=== PATIENT | male | born 1965 | race Caucasian/White ===

== ENCOUNTER 2024-08-22 18:01 | Inpatient (IN) ==
[2024-08-22 18:54] LABS: BASOPHILS % (AUTO) 0.3 %; EOSINOPHILS % (AUTO) 0.3 %; HCT - HEMATOCRIT 20.4 % (42.0-52.0); LYMPHOCYTES # (AUTO) 0.3 10^3/uL (1.5-3.5); LYMPHOCYTES % (AUTO) 8.7 %; MEAN CORPUSCULAR HEMOGLOBIN 29.4 pg (27.0-31.0); MEAN CORPUSCULAR HGB CONC 33.3 g/dL (32.0-36.0); MEAN CORPUSCULAR VOLUME 88.3 fL (80.0-94.0); MEAN PLATELET VOLUME 11.4 fL (7.4-11.4); MONOCYTES # (AUTO) 0.5 10^3/uL (0.0-1.0); NEUTROPHILS # (AUTO) 2.6 10^3/uL (1.5-6.6); NEUTROPHILS % (AUTO) 74.5 %; NRBC ABSOLUTE COUNT (AUTO) 0.03 x10^3/uL; NUCLEATED RED BLOOD CELLS AUTO 0.9 /100WBC; PLT - PLATELET COUNT 77 10^3/uL (130-450); RED BLOOD COUNT 2.31 10^6/uL (4.70-6.10); WHITE BLOOD COUNT 3.5 x10^3/uL (4.8-10.8)
[2024-08-22 19:10] LABS: HGB - HEMOGLOBIN 6.8 g/dL (14.0-18.0)
[2024-08-22 19:13] LABS: ALBUMIN/GLOBULIN RATIO 1.2 (1.0-2.2); BILIRUBIN,TOTAL 0.9 mg/dL (0.2-1.0); CALCIUM 7.6 mg/dL (8.5-10.3); CREATININE 0.9 mg/dL (0.6-1.3); POTASSIUM 3.4 mmol/L (3.5-4.5); TOTAL PROTEIN 5.6 g/dL (6.4-8.9)
[2024-08-22] MEDS: ACETAMINOPHEN 325 MG TABLET PO STA (19:24)
[2024-08-22] MEDS: SODIUM CHLORIDE 0.9% 1,000 ML IV STA ×2 (19:25)
[2024-08-22 19:26] LABS: CORONAVIRUS 229E-RESP PCR NOT DETECTED; CORONAVIRUS HKU1-RESP PCR NOT DETECTED; CORONAVIRUS NL63-RESP PCR NOT DETECTED; CORONAVIRUS OC43-RESP PCR NOT DETECTED; HUMAN METAPNEUMOVIRUS NOT DETECTED
[2024-08-22 19:27] LABS: B. PARAPERTUSSIS- RESP PCR PAN NOT DETECTED; B. PERTUSSIS- RESP PCR PANEL NOT DETECTED; C. PNEUMONIAE- RESP PCR PANEL NOT DETECTED; INFLUENZA A- RESP PCR PANEL NOT DETECTED; INFLUENZA B - RESP PCR PANEL NOT DETECTED; M. PNEUMONIAE- RESP PCR PANEL NOT DETECTED; PARAINFLUENZA VIRUS 1 NOT DETECTED; PARAINFLUENZA VIRUS 2 NOT DETECTED; PARAINFLUENZA VIRUS 4 NOT DETECTED; RHINOVIRUS/ENTEROVIRUS NOT DETECTED; RSV- RESP PCR PANEL NOT DETECTED; SARS-CoV-2 -RESP PCR PANEL NOT DETECTED
--- NOTE | 2024-08-22 19:29 | ED Physician Documentation ---
History of Present Illness Stated complaint Stated Complaint: WEAKNESS Chief complaint Chief Complaint: General History obtained from History obtained from: Patient and Family Additonal information Additional information: 59-year-old male with a history of pancreatic cancer, sees a Dr. Key at [facility] in [place]. He has not been feeling well for the past week. He states that he is had some rhinorrhea and congestion. Feeling generally unwell. No known fevers. No vomiting or diarrhea. He was receiving chemotherapy today, apparently is in remission and is receiving adjunctive juan miguel motherapy. He was told that his hemoglobin was down to 7.1 so they wanted him to come and have a blood transfusion. His states that they could not find a hospital to admit him in [place] so they decided to come home and come to the emergency department here. Upon arrival to the emergency department noted that he had a fever, tachycardia and hypoxia. states normal systolic blood pressure is 90-100. Review of Systems Constitutional Reports: Fever and Chills Cardiovascular Denies: chest pain Respiratory Reports: Cough (Mild, dry); Denies: Wheezing Gastrointestinal Denies: Abdominal pain, Vomiting, Emeka blood emesis, Heartburn or Diarrhea Genitourinary Denies: Painful urination, Urinary frequency or Urinary urgency Musculoskeletal Denies: Back pain Integumentary/Breast Denies: Rash Neurological Denies: Headache Allergic/Immunologic Denies: Wheezing Meds/Allgy Allergies Allergies Allergy/AdvReac Type Severity Reaction Status Date / Time No Known Drug Allergies Allergy Verified 08/22/24 18:11 [facility] Medical History Medical History (Updated 08/22/24 @ 21:08 by Racquel Mccoy MD) Pancreatic cancer Diverticulitis large intestine Surgical History Surgical History (Updated 08/22/24 @ 21:02 by Racquel Mccoy MD) H/O discectomy Family History Family History (Updated 08/22/24 @ 20:59 by Racquel Mccoy MD) Father Cancer Mother Arthritis Brother Alcoholism Sister Well adult exam Social History Social History (Updated 08/22/24 @ 21:01 by Racquel Mccoy MD) Smoking Status: Former smoker If you are a former smoker, when did you quit? (Date/Year): 1997 Number of Years Smoked: 16 How many cigarettes a day do you smoke? (20 cigarettes=1 Pk): 20 Second hand tobacco smoke exposure: No Do you dip or chew tobacco?: No Do you vape?: No Living arrangement: At home Marital Status: Living Condition: With spouse/s.o. More Information: Just moved from [place] to [place] this last 2 weeks because [facility] Support Person: Yes Relationship: Spouse Living Situation Details: Spouse is DPOA. 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 Exam Constitutional no apparent distress Pale appearing HENMT TMs normal bilaterally and oropharynx normal Clear rhinorrhea Eyes PERRL Neck/C-Spine supple and no meningeal signs Lymph No cervical lymphadenopathy Chest Port in the right upper chest without signs of infection Respiratory breath sounds equal bilaterally and normal respiratory effort Cardiovascular normal heart rate noted and regular rhythm noted Gastrointestinal abdomen soft to palpation, nontender to palpation and nondistended Extremities No edema Psychiatry mental status grossly normal and oriented x3 Skin no rash Results Vitals Vitals: Vital Signs - 24 hr 08/22/24 18:09 08/22/24 19:04 08/22/24 19:24 Temperature 39.4 C H Temperature Source Oral Pulse Rate 126 H 111 H Respiratory Rate 18 19 Blood Pressure 126/77 138/81 H O2 Saturation 93 89 L O2 Source Room air Nasal cannula If not protocol: Oxygen Flow, liters/minute 2 Pain Intensity 10 5 08/22/24 19:30 08/22/24 20:00 Temperature 38.3 C H Temperature Source Oral Pulse Rate 107 H 103 H Respiratory Rate 14 16 Blood Pressure 127/77 127/77 O2 Saturation 94 96 O2 Source Nasal cannula Nasal cannula If not protocol: Oxygen Flow, liters/minute 2 Pain Intensity 4 5 Oxygen O2 Source Nasal cannula Labs Labs: Laboratory Tests 08/22/24 08/22/24 08/22/24 18:27 18:40 19:22 WBC 3.5 L RBC 2.31 L Hgb 6.8 L* Hct 20.4 L MCV 88.3 MCH 29.4 MCHC 33.3 RDW 15.0 Plt Count 77 L MPV 11.4 Neut # (Auto) 2.6 Lymph # (Auto) 0.3 L [place] # (Auto) 0.5 Eos # (Auto) 0.0 Baso # (Auto) 0.0 Absolute Nucleated RBC 0.03 Nucleated RBC % 0.9 Sodium 129 L Potassium 3.4 L Chloride 96 L Carbon Dioxide 24 Anion Gap 9.0 BUN 13 Creatinine 0.9 Estimated GFR (MDRD) 86 L Glucose 158 H Lactic Acid 0.6 Calcium 7.6 L Total Bilirubin 0.9 AST 43 H ALT 34 Alkaline Phosphatase 45 Total Protein 5.6 L Albumin 3.0 L Globulin 2.6 Albumin/Globulin Ratio 1.2 Nasal Adenovirus (PCR) NOT DETECTED Nasal B. parapertussis DNA (PCR) NOT DETECTED Nasal Coronavir 229E PCR NOT DETECTED Nasal Coronavir HKU1 PCR NOT DETECTED Nasal Coronavir NL63 PCR NOT DETECTED Nasal Coronavir OC43 PCR NOT DETECTED Nasal Enterovir/Rhinovir PCR NOT DETECTED Nasal Influenza B PCR NOT DETECTED Nasal Influenza A PCR NOT DETECTED Nasal Parainfluen 1 PCR NOT DETECTED Nasal Parainfluen 2 PCR NOT DETECTED Nasal Parainfluen 3 PCR NOT DETECTED Nasal Parainfluen 4 PCR NOT DETECTED Nasal RSV (PCR) NOT DETECTED Nasal B.pertussis DNA PCR NOT DETECTED Nasal C.pneumoniae (PCR) NOT DETECTED Josse Human Metapneumo PCR NOT DETECTED Nasal M.pneumoniae (PCR) NOT DETECTED Nasal SARS-CoV-2 (PCR) NOT DETECTED Blood Type O POSITIVE Blood Type Recheck O POSITIVE Antibody Screen NEGATIVE Crossmatch IS Only See Detail Rads (name of study) cxr: Relevant Findings:: Final report received PD Medical Decision Making ED course Complexity details: reviewed results, re-evaluated patient, considered differential, d/w patient and d/w family ED course: Patient is a 59-year-old male who presents to the emergency department with fever, tachycardia. He is reportedly undergoing adjunctive chemotherapy for pancreatic cancer which is reportedly in remission. Has a port in the right upper chest. Concern for sepsis. Given IV fluids. Chest x-ray shows multifocal pneumonia. Given Rocephin and azithromycin. He is hypoxic, 87 to 89% on room air while lying still in bed, drops further than this with any movement. Placed on 2 L nasal cannula. He is also anemic, down to 6.8 hemoglobin. Given his weakness and below trams fusion threshold, will admit for sepsis, pneumonia, hypoxia and symptomatic anemia. Discussed the case with the hospitalist who accepts This document was made in part using voice recognition software. While efforts are made to proofread this document, sound alike and grammatical errors may occur. Discharge Plan Discharge Patient Disposition: [facility] DC/Xfer Condition: Stable Clinical Impression: Hypoxia, Pneumonia, Anemia, Fever Interventions: ED Admission Assessment Last Done: 08/22/24 20:39
[2024-08-22] MEDS: cefTRIAXone 2 GM VIAL IVP STA (19:57)
[2024-08-22] MEDS: AZITHROMYCIN INJ 500 MG in SODIUM CHLORIDE 0.9% 250 ML IV STA (19:59)
--- NOTE | 2024-08-22 19:59 | XRAY Report ---
PROCEDURE: XR Chest 1V INDICATIONS: Sepsis TECHNIQUE: One view of the chest was acquired. COMPARISON: None. FINDINGS: Surgical changes and devices: Right-sided port with the catheter tip at the middle third the SVC. Lungs and pleura: No pleural effusions or pneumothorax. Bilateral patchy air space opacity. Mediastinum: Mediastinal contours appear normal. Heart size is normal. Bones and chest wall: No suspicious bony lesions. Overlying soft tissues appear unremarkable. IMPRESSION: Bilateral patchy airspace opacity. This could be due to pneumonia or pneumonitis. Pulmonary edema is also a consideration. Reviewed by: Shree Reyes MD on 08/22/2024 7:58 PM PST Approved by: Shree Reyes MD on 08/22/2024 7:58 PM PST Station ID: [id number]
--- NOTE | 2024-08-22 20:09 | HISTORY & PHYSICAL EXAMINATION ---
Chief Complaint Chief Complaint Chief Complaint: Anemia History of Present Illness Admitted From Admitted From:: Home History Obtained From Records Reviewed: [facility] briseidamilo History obtained from: Patient , And Dr. Thompson Exam Limitations: None History of Present Illness HPI Comment/Other: He is a 59-year-old white male who has a history of pancreatic cancer, unknown stage. He presented to our emergency room to get 2 units of transfused packed cells. He states that he is seen by the [facility] and gets his chemotherapy from them for pancreatic cancer. He went for his chemo treatment today but his blood count was too low so they gave him an iron infusion and then instructed him to go to the emergency room to get 2 units. They were told that his hemoglobin was 7.1. With this his hemoglobin is 6.8. He has been on smaller doses and more prolonged doses of chemotherapy with the form of gentamicin and Abraxane since April. That is to treat his pancreatic cancer. Prior to that he was getting full dose 5-FU but he could not tolerate it. His states that he is responding and that his tumor is in "remission". He has been very tired. Very fatigued but he attributes that to the chemo. Yesterday he developed fevers and chills but no cough, no shortness of breath, no change in bowel habits, no dysuria, urgency, frequency. Denies eustachian tube dysfunction. Denies sore throat. He still got up this morning to go to get chemo but they opted not to do it because of the low hemoglobin. He did get an iron infusion 3 weeks ago. No change in stool. No dark or tarry stool. He is being evaluated by the ER provider, he was noted to have a temp of 38.3. Blood pressure of 127/77. Pulse 107. Respirations 14. He was hypoxic on room air and required 2 L to bring him up to 94% by nasal cannula. His chest x-ray has bilateral patchy airspace opacities. Pulmonary edema is also consideration. His sodium was hyponatremic at 129. Potassium 3.4. BUN 13, creatinine 0.9. Glucose 158, lactic acid 0.6, calcium 7.6. AST 43. Total protein 5.6. White cell count was low at 3.5. Hemoglobin 6.8. Platelets 77. After discussion with the ER provider, I will admit the patient inpatient status because I do believe he will be here more than 2 midnights. I will transfuse him, start antibiotics. I will also contact his oncology office tomorrow to see what the regimen is. Meds/Allgy Allergies Allergies Allergy/AdvReac Type Severity Reaction Status Date / Time No Known Drug Allergies Allergy Verified 08/22/24 18:11 [facility] Medical History Medical History (Updated 08/22/24 @ 21:08 by Racquel Mccoy MD) Pancreatic cancer Diverticulitis large intestine Surgical History Surgical History (Updated 08/22/24 @ 21:02 by Racquel Mccoy MD) H/O discectomy Family History Family History (Updated 08/22/24 @ 20:59 by Racquel Mccoy MD) Father Cancer Mother Arthritis Brother Alcoholism Sister Well adult exam Social History Social History (Updated 08/22/24 @ 21:01 by Racquel Mccoy MD) Smoking Status: Former smoker If you are a former smoker, when did you quit? (Date/Year): 1997 Number of Years Smoked: 16 How many cigarettes a day do you smoke? (20 cigarettes=1 Pk): 20 Second hand tobacco smoke exposure: No Do you dip or chew tobacco?: No Do you vape?: No Living arrangement: At home Marital Status: Living Condition: With spouse/s.o. Support Person: Yes Relationship: Spouse Living Situation Details: Spouse is DPOA. 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 POLST Patient has POLST: No POLST Status: Full Code Review of Systems Constitutional Reports: Fatigue, Fever, Chills, Malaise, Weakness, Poor appetite and Weight loss Eyes Denies: Pain, Irritation, Amaurosis, Blurry vision or Floaters Ears, nose, mouth, and throat Denies: Ear pain, Ear discharge, Hearing loss, Post nasal drip, Nasal obstruction, Mouth pain, Difficulty swallowing, Swelling of lips/tongue or Neck pain Cardiovascular Reports: lightheadedness and shortness of breath with exertion; Denies: Irregular heart rate, chest pain, palpitations, edema, swelling of feet/ankles, Syncope or shortness of breath when lying down Respiratory Reports: Shortness of breath; Denies: Cough, Sputum production, Change in phlegm color, Wheezing or Apnea Gastrointestinal Denies: Abdominal pain, Abdominal distention, Nausea, Vomiting, Emeka blood emesis, Difficulty swallowing, Change in bowel habits, Rectal bleeding, Rectal swelling, Rectal itching, Melena or Blood in stool Genitourinary Denies: Painful urination, Flank pain, Incontinence or Urinary frequency Musculoskeletal Denies: Back pain or Neck pain Endocrine Reports: Fatigue Allergic/Immunologic Denies: Wheezing Prior Level of Functionality: Functional with regards to dressing, feeding. Very weak and tired. Needs his to drive him to chemo and does a lot of work for him. But alert, oriented. Making decisions. Exam Exam Exceedingly pale fatigued appearing white male who is alert and oriented to person, place, time and situation Constitutional no apparent distress HENMT normocephalic, head/scalp atraumatic and oral mucous membranes abnormal (dry) Alopecia Eyes PERRL and no scleral icterus Neck/C-Spine visual inspection normal Lymph no lymphadenopathy noted Chest inspection of chest normal and palpation of chest normal Respiratory breath sounds equal bilaterally, normal respiratory effort and clear to auscultation bilaterally Cardiovascular tachycardic thumping S1 and S2, no murmur. PMI normally placed Gastrointestinal abdomen normal to inspection, abdomen soft to palpation, nontender to palpation and nontender to percussion Genitourinary no CVA tenderness Back/Pelvis spine normal to inspection Extremities normal to inspection, normal to palpation, no tenderness and full ROM Neurology relocation services specialist II-XII intact, no movement abnormality noted, no focal motor deficit noted and no sensory deficits noted Psychiatry mental status grossly normal Skin Very pale gentleman without rashes Sepsis Event Note (H) Sepsis Criteria Sepsis Criteria: Recorded Temperature greater than 38.3C or Less than 36C, Recorded Heart Rate greater than 90 bpm and Respiratory: Increasing oxygen requirements Conclusion/Plan Problem List (1) Acute respiratory failure with hypoxia: Plan: Due to pneumonia in a patient who is immunocompromised from chemotherapy. Started on nasal cannula oxygen. states he is a full code. He endorses that. So he will be intubated if he needs to be. (2) Pneumonia: Plan: Community-acquired in the immunocompromise patient. I have started him on Rocephin and azithromycin and explained to him that is a community-acquired pneumonia protocol. He will get 5 days of Rocephin, 3 days of azithromycin. If he is doing well and fever goes away, white cell count stays normal, and he goes off oxygen I will switch him over to oral meds and he can go home. (3) Pancreatic cancer: Plan: Gentamicin and Abraxane. He is reportedly achieved full remission. I will contact his oncologist tomorrow to see what his treatment regimen is. states that he takes Reglan 4 times a day. He also takes methadone 2.5 and Phenergan 25 twice a day. She wants us to make sure he takes those medications. (4) Anemia due to chemotherapy: Plan: Transfuse 1 unit of blood. Recheck hemoglobin. If he is above 7 he probably should not get a second unit according to our protocol but again I will discuss with his oncologist. He is not getting radiation as far as I now (5) Hypokalemia: Plan: Potassium riders. Recheck in the morning. Lab Results Lab results reviewed: Yes 08/22/24 18:40 08/22/24 18:40 Core Measures Anticipated LOS I expect patient to be DC'd or transferred within 96 hours.: Yes DVT/VTE - Prophylaxis VTE/DVT Device ordered at admit?: Yes
[2024-08-22] MEDS ORDERED: ONDANSETRON ODT 4 MG TABLET TL PRN (20:52)
[2024-08-22] MEDS ORDERED: ONDANSETRON 4 MG/2 ML VIAL IVP PRN (20:52)
[2024-08-22 21:59] LABS: BILIRUBIN,URINE NEGATIVE (NEGATIVE); CLARITY,URINE CLEAR (CLEAR); GLUCOSE, URINE (UA) NEGATIVE (NEGATIVE); KETONES,URINE (UA) NEGATIVE (NEGATIVE); LEUKOCYTE ESTERASE, URINE NEGATIVE (NEGATIVE); NITRITE,URINE NEGATIVE (NEGATIVE); OCCULT BLOOD,URINE NEGATIVE (NEGATIVE); PH,URINE 5.5 PH (5.0-7.5); PROTEIN,URINE TRACE mg/dL (NEGATIVE); UROBILINOGEN,URINE 0.2 (NORMAL) E.U./dL (NORMAL)
[2024-08-22 22:16] LABS: BACTERIA,URINE None Seen /HPF (None Seen); RBC,URINE 0-5 /HPF (0-5); SQUAMOUS EPITHELIAL CELL,UR NONE SEEN (<= Few); WBC,URINE 0-3 /HPF (0-3)
[2024-08-22 22:17] LABS: AMORPHOUS SEDIMENT,UR Rare /LPF
[2024-08-22] MEDS: MIRTAZAPINE 15 MG TABLET PO SCH (22:40)
[2024-08-22] MEDS: METOCLOPRAMIDE 10 MG TABLET PO SCH (22:41)
[2024-08-23] MEDS: SODIUM CHLORIDE FLUSH 0.9% 10 ML SYRINGE IVP SCH (02:51)
[2024-08-23] MEDS: ACETAMINOPHEN 325 MG TABLET PO PRN (05:08)
[2024-08-23 05:22] LABS: BASOPHILS % (AUTO) 0.3 %; HCT - HEMATOCRIT 23.1 % (42.0-52.0); HGB - HEMOGLOBIN 7.7 g/dL (14.0-18.0); LYMPHOCYTES % (AUTO) 6.3 %; MEAN CORPUSCULAR HEMOGLOBIN 29.7 pg (27.0-31.0); MEAN CORPUSCULAR HGB CONC 33.3 g/dL (32.0-36.0); MEAN CORPUSCULAR VOLUME 89.2 fL (80.0-94.0); MEAN PLATELET VOLUME 10.2 fL (7.4-11.4); MONOCYTES % (AUTO) 9.1 %; NEUTROPHILS % (AUTO) 82.6 %; PLT - PLATELET COUNT 73 10^3/uL (130-450); RED BLOOD COUNT 2.59 10^6/uL (4.70-6.10); RED CELL DISTRIBUTION WIDTH 14.9 % (12.0-15.0); WHITE BLOOD COUNT 2.9 x10^3/uL (4.8-10.8)
--- NOTE | 2024-08-23 05:22 | PROVIDER PROGRESS NOTE ---
Professor Of Geography Note Professor Of Geography Note Professor Of Geography Note: per rn - "Pt w/ acute respiratory failure w/ hypoxia and PNX, hx of pancreative stage 1V cancer who received 1 unit of PRBs that ended at 0246. Pt feels unwell and current vitals are: 39.6*C HR 118 BP 147/81 RR 24 O2 @ 96% on 4L NC Pt was afebrile before and after transfusion, but pt did have a fever down in ED prior to receiving blood. Also has frequent panic attacks per pt and and his gave him a Xanax around 0300. These are from the blood transfusion reaction protocol: Can you please order blood cultures x2, UA, pink top EDTA. Currently we have PO Tylenol to give, do you want us to change it to IV Tylenol? Any new orders you want to put in. Please advise. Thank you." orders placed as per above recommendation, to include tylenol 1gm IV and also CXR
[2024-08-23 05:31] LABS: BILIRUBIN,URINE NEGATIVE (NEGATIVE); GLUCOSE, URINE (UA) NEGATIVE (NEGATIVE); KETONES,URINE (UA) NEGATIVE (NEGATIVE); LEUKOCYTE ESTERASE, URINE NEGATIVE (NEGATIVE); NITRITE,URINE NEGATIVE (NEGATIVE); OCCULT BLOOD,URINE NEGATIVE (NEGATIVE); PROTEIN,URINE 100 mg/dL (NEGATIVE); UROBILINOGEN,URINE 0.2 (NORMAL) E.U./dL (NORMAL)
[2024-08-23 05:33] LABS: CALCIUM 7.5 mg/dL (8.5-10.3); CREATININE 0.9 mg/dL (0.6-1.3)
[2024-08-23 05:52] LABS: BACTERIA,URINE Rare /HPF (None Seen); CLARITY,URINE CLEAR (CLEAR); RBC,URINE 0-5 /HPF (0-5); SQUAMOUS EPITHELIAL CELL,UR NONE SEEN (<= Few); WBC,URINE 0-3 /HPF (0-3)
[2024-08-23] MEDS: METHADONE 5 MG TABLET PO SCH (06:09)
[2024-08-23] MEDS: PROMETHAZINE 25 MG TABLET PO SCH (06:14)
[2024-08-23 06:40] LABS: ABNORMAL LYMPHS % (MANUAL) 0 %
[2024-08-23 06:54] LABS: BAND NEUTROPHILS % (MANUAL) 11 %; DIFFERENTIAL COMMENT MANUAL DIFFERENTIAL; LYMPHOCYTES # (MANUAL) 0.1 10^3/uL (1.5-3.5); LYMPHOCYTES % (MANUAL) 5 %; MONOCYTES # (MANUAL) 0.1 10^3/uL (0.0-1.0); NEUTROPHILS # (MANUAL) 2.7 10^3/uL (1.5-6.6); PLATELET ESTIMATE, MANUAL DECREASED (<130,000) (NORMAL); PLATELET MORPHOLOGY NORMAL APPEARANCE (NORMAL); RBC MORPHOLOGY (MULTIPLE) NORMAL APPEARANCE (NORMAL); WBC MORPHOLOGY (MULTIPLE) NORMAL APPEARANCE (NORMAL)
[2024-08-23] MEDS: ACETAMINOPHEN 1,000 MG/100 ML 1,000 MG/100 ML BAG IV ONE (07:23)
--- NOTE | 2024-08-23 09:02 | XRAY Report ---
PROCEDURE: XR Chest 1V INDICATIONS: fevers TECHNIQUE: One view of the chest was acquired. COMPARISON: 08/22/2024. FINDINGS: Surgical changes and devices: Right chest wall Port-A-Cath tip is in SVC. Lungs and pleura: There is interval significant worsening of bilateral lung aeration with extensive airspace opacities throughout bilateral lung [place]. No pleural effusion or gross pneumothorax. Mediastinum: Mediastinal contours appear normal. Heart size is normal. Bones and chest wall: No suspicious bony lesions. Overlying soft tissues appear unremarkable. IMPRESSION: Interval worsening of bilateral lung aeration with extensive bilateral pulmonary infiltrates versus p ulmonary edema. No pleural effusion or pneumothorax. Findings are concordant with preliminary interpretation provided by [facility]. Reviewed by: Tigre Thomas MD on 08/23/2024 9:01 AM PST Approved by: Tigre Thomas MD on 08/23/2024 9:01 AM PST Station ID: [id number]
[2024-08-23] MEDS: FUROSEMIDE 20 MG/2 ML VIAL IVP ONE (10:04)
--- NOTE | 2024-08-23 12:04 | PHARMACY PROGRESS NOTE ---
Best Possible Medication History Admit Date and Time: 08/22/242001 Home Medications Medication Instructions Recorded Confirmed Type alprazolam 1 mg tablet 1 mg PO BID PRN anxiety 08/23/24 08/23/24 History clonidine HCl 0.2 mg tablet 0.2 mg PO BID 08/23/24 08/23/24 History fenofibrate 160 mg tablet 160 mg PO DAILY 08/23/24 08/23/24 History wukmdd-dhxelfmr-clfofuk 2 - 4 cap PO TIDWM 08/23/24 08/23/24 History 36,000-114,000-180,000 unit capsule,delay rel (Creon) methadone 5 mg tablet 2.5 mg PO BID 08/23/24 08/23/24 History metoclopramide HCl 10 mg tablet 40 mg PO ACHS 08/23/24 08/23/24 History (Reglan) mirtazapine 7.5 mg tablet 7.5 mg PO DAILY 08/23/24 08/23/24 History Processed by: Pharmacy (Medication Reconciliation completed by Facility Manager HistologyJeremy) Medications reviewed in ED?: No Medication History completed: Yes Patient Interview: Completed Secondary Source(s): Spouse/Significant other and Insurance records [facility] Statement: As the person ultimately responsible for medication therapy, providers are able to order a medication from an existing home medication list in [facility] via the "Reconcile Routine" prior to Confirmation of that medication by client support manager. Such practice is discouraged except when the physician, in their clinical judgment, deems that a medical need exists for a medication without regard to previous use.
[2024-08-23] MEDS: [UNRECOGNIZED DRUG - OTHER] PO SCH (13:53)
[2024-08-23] MEDS: LIPASE PROTEASE AMYLASE PO SCH (13:53)
--- NOTE | 2024-08-23 15:25 | PROVIDER PROGRESS NOTE ---
Documented by User: Fuad Zacarias 08/23/24 16:36 Subjective Prog Note Date Prog Note Date: 08/23/24 Subjective Pt reports feeling: Improved Subjective: Mr Rodriguez is a 59 year old gentleman with significant hx of pancreatic cancer previously treated with chemotherapy and radiation and being seen by a naturopathic provider receiving maintenance dosing of Gentamicin and Abraxane. He presented to the ED with increased WOB, hypoxia with O2 sat in the 80's% on RA. He was admitted to the floor for chemo-induced anemia with an initial Hgb 7.1, leukopenic with a WBC 3.5 thrombocytopenia with plt 77 , hyponeutremia at 129, hypokalemia 3.4, mild hypocalcemia 7.6. Subsequently on CXR showed bilateral infiltrates vs pulmonary edema indicated CAP. CXR this AM showed worsening bilateral lung aeration w/ extensive bilateral infiltrates. Abx for CAP was initialed with Ceftriaxone 1g IV q24 for 5 days and Azithromycin 500mg PO for 3 day course. He was given 1u of PRBCs with an increase in his H/H 7.7/23.1, plt levels remain low at 2.9. This morning he appeared weak, pale, and stated was having on/off feverish and chills, stating he felt like this prior to having blood transfusion. There is c/f for potential reaction from transfusion- TACO with increased lung infiltrates, with lung sounds-crackles this AM, he was given IV lasix this morning and has had increased UO. Upon assessment this afternoon, LS improved and had decreased WOB although he continues to be on NC@4lpm/ O2 sat 93%. His skin appears to be more pink vs pale/larissa in color, stating he wanted to walk around hoping it would help him improve. He is afebrile but still c/o chills/ fever but has decreased since yesterday. He was able to work with bedside RN and ambulate using a walker, continued on O2. Current Medications Current Medications Current Medications: Current Medications Generic Name Dose Route Start Last Admin Trade Name Freq PRN Reason Stop Dose Admin Acetaminophen 650 mg 08/22/24 20:52 08/23/24 11:28 Acetaminophen 325 Mg Tablet PO 650 mg Q4HR PRN Administration Pain 1 to 4, or Fever Azithromycin 500 mg 08/23/24 21:00 Azithromycin 250 Mg Tablet PO 08/24/24 21:01 HS JAYE Heparin Sodium (Beef Lung) 300 - 500 unit 08/22/24 22:32 Heparin Flush 500 Units/5 Ml Syringe IVP PRN PRN Port Protocol (>24 hours) Heparin Sodium (Beef Lung) 30 - 50 unit 08/22/24 22:32 08/23/24 06:15 Heparin Flush 50 Units/5 Ml Syringe IVP 50 unit PRN PRN Administration Port Protocol (<24 hours) Ceftriaxone Sodium 1 gm/ 100 mls @ 200 mls/hr 08/23/24 20:00 Sodium Chloride IV 08/27/24 20:29 Q24H JAYE Methadone HCl 2.5 mg 08/23/24 06:00 08/23/24 06:09 Methadone 5 Mg Tablet PO 2.5 mg 0600,1800 JAYE Administration Metoclopramide HCl 10 mg 08/22/24 22:00 08/23/24 11:28 Metoclopramide 10 Mg Tablet PO 10 mg ACHS JAYE Administration Mirtazapine 15 mg 08/22/24 21:30 08/22/24 22:40 Mirtazapine 15 Mg Tablet PO 15 mg QPM JAYE Administration Multivitamins/Minerals 1 tab 08/24/24 08:00 Multivitamin W/Minerals Tablet PO DAILYWM JAYE Ondansetron HCl 4 mg 08/22/24 20:52 Ondansetron Odt 4 Mg Tablet TL Q6HR PRN Nausea / Vomiting Ondansetron HCl 4 mg 08/22/24 20:52 Ondansetron 4 Mg/2 Ml Vial IVP Q6HR PRN Nausea / Vomiting Oxycodone HCl 5 mg 08/22/24 20:52 Oxycodone 5 Mg Tablet PO Q4HR PRN Pain 5 to 7 Lipase-Protease- 2 - 4 each 08/23/24 12:00 08/23/24 13:53 Amylase [Creon] 36, PO 3 each 000-114,000- 180,000 TIDWM JAYE Administration Unit Capsule,De Promethazine HCl 25 mg 08/23/24 06:00 08/23/24 06:14 Promethazine 25 Mg Tablet PO 25 mg 0600,1800 JAYE Administration Sodium Chloride 10 ml 08/22/24 20:52 Sodium Chloride Flush 0.9% 10 Ml Syringe IVP PRN PRN NEEDED PER PROVIDER ORDERS Sodium Chloride 10 ml 08/23/24 01:00 08/23/24 08:48 Sodium Chloride Flush 0.9% 10 Ml Syringe IVP 10 ml 0100,0900,1700 [facility] Administration Objective Vital Signs/Intake & Output Reviewed Vital Signs: Yes Vital Signs: Vital Signs x48h Temp Pulse Resp BP Pulse Ox O2 Flow Rate 08/23/24 08:10 2 08/23/24 08:06 37.0 C 102 H 22 119/74 95 2 08/23/24 06:49 38 C H Intake & Output: Intake & Output 08/20/24 08/21/24 08/22/24 08/23/24 23:59 23:59 23:59 23:59 Intake Total 2250 / 2250 3560 / 3560 Output Total 300 / 300 2425 / 2425 Balance 1950 / 1949 1135 / 1135 Weight (kg) 96 kg Objective General Appearance: positive Alert Eyes Bilateral: positive PERRL, EOMI, Conjunctivae nml and No scleral icterus ENT: positive ENT inspection nml Neck: positive Nml inspection Respiratory: positive No respiratory distress Cardiovascular: positive Regular rate & rhythm Peripheral Pulses: 2+: Radial (R), 2+: Radial (L), 2+: Dorsalis pedis (R) and 2+: Dorsalis pedis (L) Abdomen: positive Non-tender, Nml bowel sounds and No distention Back: positive Nml inspection Skin: positive Warm and Pallor (decreased from AM assessment) Extremities: positive Non-tender and No pedal edema Neurologic/Psychiatric: positive Oriented x3, CN's nml (2-12), Motor nml and Weakness Lab Results 08/23/24 05:03 08/23/24 05:03 Other Labs: Lab Results x24hrs 08/23/24 08/23/24 08/23/24 Range/Units 05:19 05:19 05:03 WBC 2.9 L (4.8-10.8) x10^3/uL RBC 2.59 L (4.70-6.10) 10^6/uL Hgb 7.7 L (14.0-18.0) g/dL Hct 23.1 L (42.0-52.0) % MCV 89.2 (80.0-94.0) fL MCH 29.7 (27.0-31.0) pg MCHC 33.3 (32.0-36.0) g/dL RDW 14.9 (12.0-15.0) % Plt Count 73 L (130-450) 10^3/uL MPV 10.2 (7.4-11.4) fL Neut # (Auto) Not Reportable (1.5-6.6) 10^3/uL Lymph # (Auto) Not Reportable (1.5-3.5) 10^3/uL [place] # (Auto) Not Reportable (0.0-1.0) 10^3/uL Eos # (Auto) Not Reportable (0.0-0.7) 10^3/uL Baso # (Auto) Not Reportable (0.0-0.1) 10^3/uL Absolute Nucleated RBC Not Reportable x10^3/uL Total Counted 100 Band Neuts % (Manual) 11 H (0 - 10) % Abnorm Lymph % (Manual) 0 % Nucleated RBC % Not Reportable /100WBC Neutrophils # (Manual) 2.7 (1.5-6.6) 10^3/uL Lymphocytes # (Manual) 0.1 L (1.5-3.5) 10^3/uL Monocytes # (Manual) 0.1 (0.0-1.0) 10^3/uL Eosinophils # (Manual) 0.0 (0-0.7) 10^3/uL Basophils # (Manual) 0.0 (0-0.1) 10^3/uL Differential Comment MANUAL DIFFERENTIAL WBC Morphology NORMAL APPEARANCE (NORMAL) Platelet Estimate DECREASED (<130,000) (NORMAL) Platelet Morphology NORMAL APPEARANCE (NORMAL) RBC Morph Micro Appear NORMAL APPEARANCE (NORMAL) Sodium 129 L (135-145) mmol/L Potassium 4.0 (3.5-4.5) mmol/L Chloride 99 L (101-111) mmol/L Carbon Dioxide 24 (21-32) mmol/L Anion Gap 6.0 (6-13) BUN 12 (6-20) mg/dL Creatinine 0.9 (0.6-1.3) mg/dL Estimated GFR (MDRD) 86 L (>89) Glucose 205 H (74-104) mg/dL Lactic Acid (0.5-2.2) mmol/L Calcium 7.5 L (8.5-10.3) mg/dL Total Bilirubin (0.2-1.0) mg/dL AST (10-42) IU/L ALT (10-60) IU/L Alkaline Phosphatase (42-121) IU/L Total Protein (6.4-8.9) g/dL Albumin (3.2-5.5) g/dL Globulin (2.1-4.2) g/dL Albumin/Globulin Ratio (1.0-2.2) Urine Color YELLOW Urine Clarity CLEAR (CLEAR) Urine pH 6.0 (5.0-7.5) PH Ur Specific [place] >=1.030 H (1.002-1.030) Urine Protein 100 H (NEGATIVE) mg/dL Urine Glucose (UA) NEGATIVE (NEGATIVE) mg/dL Urine Ketones NEGATIVE (NEGATIVE) mg/dL Urine Occult Blood NEGATIVE (NEGATIVE) Urine Nitrite NEGATIVE (NEGATIVE) Urine Bilirubin NEGATIVE (NEGATIVE) Urine Urobilinogen 0.2 (NORMAL) (NORMAL) E.U./dL Ur Leukocyte Esterase NEGATIVE (NEGATIVE) Urine RBC 0-5 (0-5) /HPF Urine WBC 0-3 (0-3) /HPF Ur Squamous Epith Cells NONE SEEN (<= Few) Amorphous Sediment /LPF Urine Bacteria Rare (None Seen) /HPF Urine Casts 0-2 RBC Casts 3-5 Granular Casts /LPF Urine Culture Comments NOT INDICATED Nasal Adenovirus (PCR) Nasal B. parapertussis DNA (PCR) Nasal Coronavir 229E PCR Nasal Coronavir HKU1 PCR Nasal Coronavir NL63 PCR Nasal Coronavir OC43 PCR Nasal Enterovir/Rhinovir PCR Nasal Influenza B PCR Nasal Influenza A PCR Nasal Parainfluen 1 PCR Nasal Parainfluen 2 PCR Nasal Parainfluen 3 PCR Nasal Parainfluen 4 PCR Nasal RSV (PCR) Nasal B.pertussis DNA PCR Nasal C.pneumoniae (PCR) Josse Human Metapneumo PCR Nasal M.pneumoniae (PCR) Nasal SARS-CoV-2 (PCR) Blood Type Blood Type Recheck Antibody Screen Crossmatch IS Only 08/22/24 08/22/24 08/22/24 Range/Units 21:40 19:22 18:40 WBC 3.5 L (4.8-10.8) x10^3/uL RBC 2.31 L (4.70-6.10) 10^6/uL Hgb 6.8 L* (14.0-18.0) g/dL Hct 20.4 L (42.0-52.0) % MCV 88.3 (80.0-94.0) fL MCH 29.4 (27.0-31.0) pg MCHC 33.3 (32.0-36.0) g/dL RDW 15.0 (12.0-15.0) % Plt Count 77 L (130-450) 10^3/uL MPV 11.4 (7.4-11.4) fL Neut # (Auto) 2.6 (1.5-6.6) 10^3/uL Lymph # (Auto) 0.3 L (1.5-3.5) 10^3/uL [place] # (Auto) 0.5 (0.0-1.0) 10^3/uL Eos # (Auto) 0.0 (0.0-0.7) 10^3/uL Baso # (Auto) 0.0 (0.0-0.1) 10^3/uL Absolute Nucleated RBC 0.03 x10^3/uL Total Counted Band Neuts % (Manual) (0 - 10) % Abnorm Lymph % (Manual) % Nucleated RBC % 0.9 /100WBC Neutrophils # (Manual) (1.5-6.6) 10^3/uL Lymphocytes # (Manual) (1.5-3.5) 10^3/uL Monocytes # (Manual) (0.0-1.0) 10^3/uL Eosinophils # (Manual) (0-0.7) 10^3/uL Basophils # (Manual) (0-0.1) 10^3/uL Differential Comment WBC Morphology (NORMAL) Platelet Estimate (NORMAL) Platelet Morphology (NORMAL) RBC Morph Micro Appear (NORMAL) Sodium 129 L (135-145) mmol/L Potassium 3.4 L (3.5-4.5) mmol/L Chloride 96 L (101-111) mmol/L Carbon Dioxide 24 (21-32) mmol/L Anion Gap 9.0 (6-13) BUN 13 (6-20) mg/dL Creatinine 0.9 (0.6-1.3) mg/dL Estimated GFR (MDRD) 86 L (>89) Glucose 158 H (74-104) mg/dL Lactic Acid 0.6 (0.5-2.2) mmol/L Calcium 7.6 L (8.5-10.3) mg/dL Total Bilirubin 0.9 (0.2-1.0) mg/dL AST 43 H (10-42) IU/L ALT 34 (10-60) IU/L Alkaline Phosphatase 45 (42-121) IU/L Total Protein 5.6 L (6.4-8.9) g/dL Albumin 3.0 L (3.2-5.5) g/dL Globulin 2.6 (2.1-4.2) g/dL Albumin/Globulin Ratio 1.2 (1.0-2.2) Urine Color YELLOW Urine Clarity CLEAR (CLEAR) Urine pH 5.5 (5.0-7.5) PH Ur Specific [place] 1.015 (1.002-1.030) Urine Protein TRACE (NEGATIVE) mg/dL Urine Glucose (UA) NEGATIVE (NEGATIVE) mg/dL Urine Ketones NEGATIVE (NEGATIVE) mg/dL Urine Occult Blood NEGATIVE (NEGATIVE) Urine Nitrite NEGATIVE (NEGATIVE) Urine Bilirubin NEGATIVE (NEGATIVE) Urine Urobilinogen 0.2 (NORMAL) (NORMAL) E.U./dL Ur Leukocyte Esterase NEGATIVE (NEGATIVE) Urine RBC 0-5 (0-5) /HPF Urine WBC 0-3 (0-3) /HPF Ur Squamous Epith Cells NONE SEEN (<= Few) Amorphous Sediment Rare /LPF Urine Bacteria None Seen (None Seen) /HPF Urine Casts /LPF Urine Culture Comments NOT INDICATED Nasal Adenovirus (PCR) Nasal B. parapertussis DNA (PCR) Nasal Coronavir 229E PCR Nasal Coronavir HKU1 PCR Nasal Coronavir NL63 PCR Nasal Coronavir OC43 PCR Nasal Enterovir/Rhinovir PCR Nasal Influenza B PCR Nasal Influenza A PCR Nasal Parainfluen 1 PCR Nasal Parainfluen 2 PCR Nasal Parainfluen 3 PCR Nasal Parainfluen 4 PCR Nasal RSV (PCR) Nasal B.pertussis DNA PCR Nasal C.pneumoniae (PCR) Josse Human Metapneumo PCR Nasal M.pneumoniae (PCR) Nasal SARS-CoV-2 (PCR) Blood Type O POSITIVE Blood Type Recheck O POSITIVE Antibody Screen NEGATIVE Crossmatch IS Only See Detail 08/22/24 Range/Units 18:27 WBC (4.8-10.8) x10^3/uL RBC (4.70-6.10) 10^6/uL Hgb (14.0-18.0) g/dL Hct (42.0-52.0) % MCV (80.0-94.0) fL MCH (27.0-31.0) pg MCHC (32.0-36.0) g/dL RDW (12.0-15.0) % Plt Count (130-450) 10^3/uL MPV (7.4-11.4) fL Neut # (Auto) (1.5-6.6) 10^3/uL Lymph # (Auto) (1.5-3.5) 10^3/uL [place] # (Auto) (0.0-1.0) 10^3/uL Eos # (Auto) (0.0-0.7) 10^3/uL Baso # (Auto) (0.0-0.1) 10^3/uL Absolute Nucleated RBC x10^3/uL Total Counted Band Neuts % (Manual) (0 - 10) % Abnorm Lymph % (Manual) % Nucleated RBC % /100WBC Neutrophils # (Manual) (1.5-6.6) 10^3/uL Lymphocytes # (Manual) (1.5-3.5) 10^3/uL Monocytes # (Manual) (0.0-1.0) 10^3/uL Eosinophils # (Manual) (0-0.7) 10^3/uL Basophils # (Manual) (0-0.1) 10^3/uL Differential Comment WBC Morphology (NORMAL) Platelet Estimate (NORMAL) Platelet Morphology (NORMAL) RBC Morph Micro Appear (NORMAL) Sodium (135-145) mmol/L Potassium (3.5-4.5) mmol/L Chloride (101-111) mmol/L Carbon Dioxide (21-32) mmol/L Anion Gap (6-13) BUN (6-20) mg/dL Creatinine (0.6-1.3) mg/dL Estimated GFR (MDRD) (>89) Glucose (74-104) mg/dL Lactic Acid (0.5-2.2) mmol/L Calcium (8.5-10.3) mg/dL Total Bilirubin (0.2-1.0) mg/dL AST (10-42) IU/L ALT (10-60) IU/L Alkaline Phosphatase (42-121) IU/L Total Protein (6.4-8.9) g/dL Albumin (3.2-5.5) g/dL Globulin (2.1-4.2) g/dL Albumin/Globulin Ratio (1.0-2.2) Urine Color Urine Clarity (CLEAR) Urine pH (5.0-7.5) PH Ur Specific [place] (1.002-1.030) Urine Protein (NEGATIVE) mg/dL Urine Glucose (UA) (NEGATIVE) mg/dL Urine Ketones (NEGATIVE) mg/dL Urine Occult Blood (NEGATIVE) Urine Nitrite (NEGATIVE) Urine Bilirubin (NEGATIVE) Urine Urobilinogen (NORMAL) E.U./dL Ur Leukocyte Esterase (NEGATIVE) Urine RBC (0-5) /HPF Urine WBC (0-3) /HPF Ur Squamous Epith Cells (<= Few) Amorphous Sediment /LPF Urine Bacteria (None Seen) /HPF Urine Casts /LPF Urine Culture Comments Nasal Adenovirus (PCR) NOT DETECTED Nasal B. parapertussis DNA (PCR) NOT DETECTED Nasal Coronavir 229E PCR NOT DETECTED Nasal Coronavir HKU1 PCR NOT DETECTED Nasal Coronavir NL63 PCR NOT DETECTED Nasal Coronavir OC43 PCR NOT DETECTED Nasal Enterovir/Rhinovir PCR NOT DETECTED Nasal Influenza B PCR NOT DETECTED Nasal Influenza A PCR NOT DETECTED Nasal Parainfluen 1 PCR NOT DETECTED Nasal Parainfluen 2 PCR NOT DETECTED Nasal Parainfluen 3 PCR NOT DETECTED Nasal Parainfluen 4 PCR NOT DETECTED Nasal RSV (PCR) NOT DETECTED Nasal B.pertussis DNA PCR NOT DETECTED Nasal C.pneumoniae (PCR) NOT DETECTED Josse Human Metapneumo PCR NOT DETECTED Nasal M.pneumoniae (PCR) NOT DETECTED Nasal SARS-CoV-2 (PCR) NOT DETECTED Blood Type Blood Type Recheck Antibody Screen Crossmatch IS Only Sepsis Event Note (H) Sepsis Criteria Sepsis Criteria: Recorded Temperature greater than 38.3C or Less than 36C, Recorded Heart Rate greater than 90 bpm and Respiratory: Increasing oxygen requirements Assessment/Plan Problem List (1) Acute respiratory failure with hypoxia: Impression: O2 sat 92-93% on O2@ 4-5lpm NC w/ WOB on excertion. (2) Pneumonia: Impression: Morning WBC 2.9. will monitor CBC. Blood Cultures showed no growth. Day 2/5 of abx Ceftriaxone 1g IV q24, Day 2/3 Azithromycin 500mg PO q24 CXR 08/23 indicated worsening bilateral infiltrates w/ LS in AM crackles. Laxix 20mg this AM, increased UO and LS improved with decreased WOB. Still req low-flow O2. Tylonol for fever PRN Qualifiers: Laterality: unspecified laterality Lung location: unspecified part of lung Pneumonia type: due to unspecified organism Qualified Code(s): J18.9 - Pneumonia, unspecified organism (3) Anemia due to chemotherapy: Impression: AM labs WBC 2.9, increased H/H 7.7/ 23.1 after 1u PRBC, will continue serial CBCs. (4) Hypokalemia: Impression: Improved w/ AM labs Na 129, promote PO food intake and monitor serial electrolytes. (5) Pancreatic cancer: Impression: Oncologist contacted today, states cancer has been "stable" for past 2-3 months. On "maintenance dosing" of Gentamicin + Abraxane. Continue home med-Reglan for N/V, Methadone 2.5mg and Phenergan 25mg/ day for pain. Qualifiers: Pancreatic malignancy location: unspecified Qualified Code(s): C25.9 - Malignant neoplasm of pancreas, unspecified Documented by User: Demetrio Rosales MD 08/23/24 15:30 Objective Objective General Appearance: positive No acute distress; negative Anxious Respiratory: positive Rales (mild bibasilar crackles ); negative Wheezes Cardiovascular: positive No murmur and No gallop; negative Diastolic murmur Abdomen: negative Guarding, Hepatomegaly or Splenomegaly Lab Results 08/23/24 05:03 08/23/24 05:03 Diagnostic Imaging Diagnostic Imaging Results: positive Final report reviewed Assessment/Plan Problem List (1) Acute respiratory failure with hypoxia: Impression: O2 sat 92-93% on O2@ 4-5lpm NC w/ WOB on exertion. Likely due to pneumonia as outlined below. (2) Pneumonia: Qualifiers: Laterality: unspecified laterality Lung location: unspecified part of lung Pneumonia type: due to unspecified organism Qualified Code(s): J18.9 - Pneumonia, unspecified organism (3) Anemia due to chemotherapy: Impression: AM labs WBC 2.9, increased H/H 7.7/ 23.1 after 1u PRBC, will continue serial CBCs. No active bleeding noted. (4) Hypokalemia: (5) Pancreatic cancer: Impression: Oncologist contacted today, Dr. Misbah Key in [place], [place], states cancer has been "stable" for past 2-3 months. On "maintenance dosing" of Gentamicin + Abraxane. Continue home med-Reglan for N/V, Methadone 2.5mg and Phenergan 25mg/ day for pain. Continue home Creon dosing as well. Qualifiers: Pancreatic malignancy location: unspecified Qualified Code(s): C25.9 - Malignant neoplasm of pancreas, unspecified
[2024-08-23] MEDS: ALPRAZolam 0.25 MG TABLET PO PRN (17:41)
[2024-08-23] MEDS: AZITHROMYCIN 250 MG TABLET PO SCH (20:39)
[2024-08-23] MEDS: cefTRIAXone 1 GM in SODIUM CHLORIDE 0.9% MINIBAG 100 ML IV SCH (20:40)
[2024-08-23] MEDS: cloNIDine 0.1 MG TABLET PO SCH (20:40)
[2024-08-23] MEDS ORDERED: AZITHROMYCIN INJ 500 MG in SODIUM CHLORIDE 0.9% 250 ML IV SCH (21:00)
[2024-08-23 21:38] LABS: ESTIMATED AVERAGE GLUCOSE 123 mg/dL (70-100); HEMOGLOBIN A1c% 5.9 % (4.27-6.07)
[2024-08-24 06:08] LABS: BASOPHILS % (AUTO) 0.4 %; EOSINOPHILS % (AUTO) 0.7 %; HCT - HEMATOCRIT 20.4 % (42.0-52.0); LYMPHOCYTES % (AUTO) 11.3 %; MEAN CORPUSCULAR HEMOGLOBIN 29.4 pg (27.0-31.0); MEAN CORPUSCULAR HGB CONC 33.8 g/dL (32.0-36.0); MEAN CORPUSCULAR VOLUME 86.8 fL (80.0-94.0); MEAN PLATELET VOLUME 11.7 fL (7.4-11.4); NEUTROPHILS % (AUTO) 81.9 %; PLT - PLATELET COUNT 101 10^3/uL (130-450); RED BLOOD COUNT 2.35 10^6/uL (4.70-6.10); RED CELL DISTRIBUTION WIDTH 14.7 % (12.0-15.0); WHITE BLOOD COUNT 2.8 x10^3/uL (4.8-10.8)
[2024-08-24 06:18] LABS: HGB - HEMOGLOBIN 6.9 g/dL (14.0-18.0)
[2024-08-24 06:19] LABS: ABNORMAL LYMPHS % (MANUAL) 0 %
[2024-08-24 06:36] LABS: BAND NEUTROPHILS % (MANUAL) 13 %; BASOPHILS % (MANUAL) 1 %; LYMPHOCYTES # (MANUAL) 0.1 10^3/uL (1.5-3.5); LYMPHOCYTES % (MANUAL) 5 %; MONOCYTES # (MANUAL) 0.1 10^3/uL (0.0-1.0); NEUTROPHILS # (MANUAL) 2.5 10^3/uL (1.5-6.6)
[2024-08-24 06:37] LABS: DIFFERENTIAL COMMENT MANUAL DIFFERENTIAL; PLATELET ESTIMATE, MANUAL DECREASED (<130,000) (NORMAL); PLATELET MORPHOLOGY NORMAL APPEARANCE (NORMAL); RBC MORPHOLOGY (MULTIPLE) NORMAL APPEARANCE (NORMAL); WBC MORPHOLOGY (MULTIPLE) NORMAL APPEARANCE (NORMAL)
[2024-08-24 07:01] LABS: CALCIUM 7.4 mg/dL (8.5-10.3); CREATININE 0.9 mg/dL (0.6-1.3); POTASSIUM 3.3 mmol/L (3.5-4.5)
[2024-08-24] MEDS: MULTIVITAMIN W/MINERALS TABLET PO SCH (08:03)
[2024-08-24] MEDS: MIRTAZAPINE 15 MG TABLET PO SCH (08:03)
--- NOTE | 2024-08-24 09:06 | XRAY Report ---
PROCEDURE: XR Chest 1V INDICATIONS: [place] TECHNIQUE: One view of the chest was acquired. COMPARISON: 08/23/2024 and 08/22/2024. FINDINGS: Surgical changes and devices: Right chest wall Port-A-Cath tip is in SVC. Lungs and pleura: No pleural effusions or pneumothorax. Persistent extensive airspace opacity throug hout bilateral lung [place] are seen not significantly changed from previous day. Mediastinum: Mediastinal contours appear normal. Heart size is normal. Bones and chest wall: No suspicious bony lesions. Overlying soft tissues appear unremarkable. IMPRESSION: Persistent extensive bilateral pulmonary airspace opacities. No pleural effusion or pneumothorax. Reviewed by: Tigre Thomas MD on 08/24/2024 9:05 AM PST Approved by: Tigre Thomas MD on 08/24/2024 9:05 AM PST Station ID: [id number]
[2024-08-24] MEDS: ACETAMINOPHEN 325 MG TABLET PO ONE (09:31)
[2024-08-24] MEDS: methylPREDNISolone SUCCINATE 40 MG/ML VIAL IVP SCH (09:32)
[2024-08-24] MEDS: FUROSEMIDE 20 MG/2 ML VIAL IVP ONE (09:32)
--- NOTE | 2024-08-24 10:26 | PROVIDER PROGRESS NOTE ---
Documented by User: Fuad Zacarias 08/24/24 13:48 Subjective Prog Note Date Prog Note Date: 08/24/24 Subjective Pt reports feeling: No change Subjective: Mr Rodriguez, a 59-year old gentleman admitted for acute respiratory failure w/ hypoxia and cancer treatment induced anemia. Morning labs showed continued leukopenia WBC 2.8, Hgb 6.9, Hct 20.4, plt 101. A second unit of PRBCs was ordered and administered and pretreated with APAP for febrile nonhemolytic transfusion reaction w/ no other s/s's. He developed increased WOB with O2 sat 88% and placed on oxymask @ 14lpm. CXR this am displaying bilateral pulmonary infiltrates, lung sounds crackles, c/f diffuse interstitial pneumonitis. His O2 sat and WOB recovered and was transitioned back to NC @ 4lpm. Abx day 09/14 Ceftriaxone and day 09/12 of Azithromycin, blood cultures show NGTD. Continued IV Lasix 20mg and started IV Solu-medrol 40mg. He was able to walk around the unit yesterday with assistance from bedside RN/walker and stated he was exhausted afterwards and fell asleep. Recommend continued ambulation and PT/ OT work with pt. He denied nausea, continued scheduled antiemetics and was able to eat breakfast without difficulty. Continue to scheduled Methadone 2.5mg and phenergan 25mg for pain/nausea, anxiousness. We spoke about potential disease progression due to his immunosuppression from cancer treatment and about the increased O2 need and intubation, him and his expressed intubation to be held off as long as possible if medications and other forms of NIPPV-BiPAP are not working. Current Medications Current Medications Current Medications: Current Medications Generic Name Dose Route Start Last Admin Trade Name Freq PRN Reason Stop Dose Admin Acetaminophen 650 mg 08/22/24 20:52 08/24/24 04:56 Acetaminophen 325 Mg Tablet PO 650 mg Q4HR PRN Administration Pain 1 to 4, or Fever Alprazolam 1 mg 08/23/24 17:30 08/24/24 04:53 Alprazolam 0.25 Mg Tablet PO 1 mg BID PRN Administration anxiety Azithromycin 500 mg 08/23/24 21:00 08/23/24 20:39 Azithromycin 250 Mg Tablet PO 08/24/24 21:01 500 mg HS JAYE Administration Clonidine HCl 0.2 mg 08/23/24 21:00 08/24/24 08:03 Clonidine 0.1 Mg Tablet PO 0.2 mg BID JAYE Administration Heparin Sodium (Beef Lung) 300 - 500 unit 08/22/24 22:32 Heparin Flush 500 Units/5 Ml Syringe IVP PRN PRN Port Protocol (>24 hours) Heparin Sodium (Beef Lung) 30 - 50 unit 08/22/24 22:32 08/23/24 06:15 Heparin Flush 50 Units/5 Ml Syringe IVP 50 unit PRN PRN Administration Port Protocol (<24 hours) Ceftriaxone Sodium 1 gm/ 100 mls @ 200 mls/hr 08/23/24 20:00 08/23/24 21:10 Sodium Chloride IV 08/27/24 20:29 Infused Q24H JAYE Infusion Methadone HCl 2.5 mg 08/23/24 06:00 08/24/24 05:29 Methadone 5 Mg Tablet PO 2.5 mg 0600,1800 JAYE Administration Methylprednisolone 40 mg 08/24/24 08:00 08/24/24 09:32 Methylprednisolone Succinate 40 Mg/Ml Vial IVP 40 mg TID JAYE Administration Metoclopramide HCl 10 mg 08/22/24 22:00 08/24/24 06:17 Metoclopramide 10 Mg Tablet PO 10 mg ACHS JAYE Administration Mirtazapine 7.5 mg 08/24/24 09:00 08/24/24 08:03 Mirtazapine 15 Mg Tablet PO 7.5 mg DAILY JAYE Administration Multivitamins/Minerals 1 tab 08/24/24 08:00 08/24/24 08:03 Multivitamin W/Minerals Tablet PO 1 tab DAILYWM JAYE Administration Ondansetron HCl 4 mg 08/22/24 20:52 Ondansetron Odt 4 Mg Tablet TL Q6HR PRN Nausea / Vomiting Ondansetron HCl 4 mg 08/22/24 20:52 Ondansetron 4 Mg/2 Ml Vial IVP Q6HR PRN Nausea / Vomiting Oxycodone HCl 5 mg 08/22/24 20:52 Oxycodone 5 Mg Tablet PO Q4HR PRN Pain 5 to 7 Lipase-Protease- 2 - 4 each 08/23/24 12:00 08/24/24 08:03 Amylase [Creon] 36, PO 2 each 000-114,000- 180,000 TIDWM JAYE Administration Unit Capsule,De Promethazine HCl 25 mg 08/23/24 06:00 08/24/24 06:18 Promethazine 25 Mg Tablet PO 25 mg 0600,1800 JAYE Administration Sodium Chloride 10 ml 08/22/24 20:52 Sodium Chloride Flush 0.9% 10 Ml Syringe IVP PRN PRN NEEDED PER PROVIDER ORDERS Sodium Chloride 10 ml 08/23/24 01:00 08/24/24 09:32 Sodium Chloride Flush 0.9% 10 Ml Syringe IVP 10 ml 0100,0900,1700 JAYE Administration Objective Vital Signs/Intake & Output Vital Signs: Vital Signs x48h Temp Pulse Pulse Pulse Resp BP Pulse Ox 08/24/24 09:42 36.6 C 100 16 138/76 H 96 08/24/24 08:23 36.3 C L 92 20 111/60 94 08/24/24 05:05 22 92 08/24/24 04:44 106 H 08/24/24 04:32 37.5 C 117 H 20 112/68 88 L O2 Flow Rate 08/24/24 09:42 13 08/24/24 08:23 4 08/24/24 05:05 14 08/24/24 04:44 08/24/24 04:32 5 Intake & Output: Intake & Output 08/21/24 08/22/24 08/23/24 08/24/24 23:59 23:59 23:59 23:59 Intake Total 2250 / 2250 3960 / 3960 720 / 720 Output Total 300 / 300 3745 / 3745 300 / 300 Balance 1950 / 1950 215 / 215 420 / 420 Weight (kg) 96 kg Lab Results 08/24/24 05:29 08/24/24 05:29 Other Labs: Lab Results x24hrs 08/24/24 08/23/24 08/22/24 Range/Units 05:29 05:03 19:22 WBC 2.8 L (4.8-10.8) x10^3/uL RBC 2.35 L (4.70-6.10) 10^6/uL Hgb 6.9 L* (14.0-18.0) g/dL Hct 20.4 L (42.0-52.0) % MCV 86.8 (80.0-94.0) fL MCH 29.4 (27.0-31.0) pg MCHC 33.8 (32.0-36.0) g/dL RDW 14.7 (12.0-15.0) % Plt Count 101 L (130-450) 10^3/uL MPV 11.7 H (7.4-11.4) fL Neut # (Auto) Not Reportable Lymph # (Auto) Not Reportable Ramsey # (Auto) Not Reportable Eos # (Auto) Not Reportable Baso # (Auto) Not Reportable Absolute Nucleated RBC Not Reportable Total Counted 100 Band Neuts % (Manual) 13 H (0 - 10) % Abnorm Lymph % (Manual) 0 % Nucleated RBC % Not Reportable Neutrophils # (Manual) 2.5 (1.5-6.6) 10^3/uL Lymphocytes # (Manual) 0.1 L (1.5-3.5) 10^3/uL Monocytes # (Manual) 0.1 (0.0-1.0) 10^3/uL Eosinophils # (Manual) 0.0 (0-0.7) 10^3/uL Basophils # (Manual) 0.0 (0-0.1) 10^3/uL Differential Comment MANUAL DIFFERENTIAL WBC Morphology NORMAL APPEARANCE (NORMAL) Platelet Estimate DECREASED (<130,000) (NORMAL) Platelet Morphology NORMAL APPEARANCE (NORMAL) RBC Morph Micro Appear NORMAL APPEARANCE (NORMAL) Sodium 128 L (135-145) mmol/L Potassium 3.3 L (3.5-4.5) mmol/L Chloride 96 L (101-111) mmol/L Carbon Dioxide 24 (21-32) mmol/L Anion Gap 8.0 (6-13) BUN 9 (6-20) mg/dL Creatinine 0.9 (0.6-1.3) mg/dL Estimated GFR (MDRD) 86 L (>89) Glucose 153 H (74-104) mg/dL Estimat Average Glucose 123 H (70-100) mg/dL Hemoglobin A1c % 5.9 (4.27-6.07) % Calcium 7.4 L (8.5-10.3) mg/dL Blood Type O POSITIVE Antibody Screen NEGATIVE Crossmatch IS Only See Detail Sepsis Event Note (H) Sepsis Criteria Sepsis Criteria: Recorded Temperature greater than 38.3C or Less than 36C, Recorded Heart Rate greater than 90 bpm and Respiratory: Increasing oxygen requirements Assessment/Plan Problem List (1) Acute respiratory failure with hypoxia: Impression: Requiring O2 via Oxymask @14-15lpm for 88% sat and incrased WOB. (2) Pneumonia: Impression: No significant changes from previous CXRs this AM. persistent extensive bilat pulm airspace opacities. c/f interstitial pneumonitis. Day 3/ Ceftriaxone 1g IV q24; day 3/ Azithromycin 500mg PO q24. Blood cultures NGTD Lasix 20mg continued. Add 40mg Solu-medrol IV for fluid offload. Qualifiers: Laterality: unspecified laterality Lung location: unspecified part of lung Pneumonia type: due to unspecified organism Qualified Code(s): J18.9 - Pneumonia, unspecified organism (3) Anemia due to chemotherapy: Impression: AM labs WBC 2.8, Hgb 6.9/ Hct 20.4 - second unit of PRBCs this AM. serial CBCs. Pre-treated w/ APAP c/f febrile nonhemolytic transfusion reaction w/ no other s/s's. - blood smear showed no hemolysis. (4) Hypokalemia: Impression: AM Potassium 3.3, replacement per protocol. Documented by User: Demetrio Rosales MD 08/24/24 13:56 Subjective Subjective Subjective: Mr Rodriguez, a 59-year old gentleman admitted for acute respiratory failure w/ hypoxia and cancer treatment induced anemia. Morning labs showed continued leukopenia WBC 2.8, Hgb 6.9, Hct 20.4, plt 101. A second unit of PRBCs was ordered and administered and pretreated with APAP for febrile nonhemolytic transfusion reaction w/ no other s/s's. He developed increased WOB with O2 sat 88% and placed on oxymask @ 14lpm. CXR this am displaying bilateral pulmonary infiltrates, lung sounds crackles, c/f diffuse interstitial pneumonitis. His O2 sat and WOB recovered and was transitioned back to NC @ 4lpm. Abx day 3/5 Ceftriaxone and day 3/3 of Azithromycin, blood cultures show NGTD. Continued IV Lasix 20mg and started IV Solu-medral 40mg. He was able to walk around the unit yesterday with assistance from bedside RN/walker and stated he was exhausted afterwards and fell asleep. Recommend continued ambulation and PT/ OT work with pt. He denied nausea, continued scheduled antiemetics and was able to eat breakfast without difficulty. Continue to scheduled Methadone 2.5mg and phenergan 25mg for pain/nausea, anxiousness. We spoke about potential disease progression due to his immunosuppression from cancer treatment and about the increased O2 need and intubation, him and his expressed intubation to be held off as long as possible if medications and other forms of NIPPV-BiPAP are not working. Objective Vital Signs/Intake & Output Reviewed Vital Signs: Yes Objective General Appearance: positive No acute distress and Alert; negative Anxious Eyes Bilateral: positive PERRL, EOMI, Conjunctivae nml and No scleral icterus ENT: positive ENT inspection nml Neck: positive Nml inspection Respiratory: positive No respiratory distress and Rales (mild fine crackles noted, more pronounced at bases); negative Wheezes Cardiovascular: positive Regular rate & rhythm, No murmur and No gallop; negative Diastolic murmur Peripheral Pulses: 2+: Radial (R), 2+: Radial (L), 2+: Dorsalis pedis (R) and 2+: Dorsalis pedis (L) Abdomen: positive Non-tender, Nml bowel sounds and No distention; negative Guarding, Hepatomegaly or Splenomegaly Back: positive Nml inspection Skin: positive Warm and Pallor (decreased from AM assessment) Extremities: positive Non-tender and No pedal edema Neurologic/Psychiatric: positive Oriented x3, CN's nml (2-12), Motor nml and Weakness Lab Results 08/24/24 05:29 08/24/24 05:29 Diagnostic Imaging Diagnostic Imaging Results: positive Final report reviewed Assessment/Plan Problem List (1) Acute respiratory failure with hypoxia: Impression: Overnight, patient had an episode of desaturation resulting in increaed oxygen requirements. Requiring O2 via Oxymask @14-15lpm for 88% saturation. Continue to wean down as tolerated. Now on 8L. Chest x-ray shows bilateral pulmonary airspace opacitites, concern for pneumonitis (could be gemcitabine induced, appropriate timeline noted), fluid overload, vs. bacterial pneumonia. Stable or slight improvement since yesterday. Will continue to get daily chest x-rays. Consider CT if no improvement noted. ECHO ordered, pending. (2) Pneumonia: Impression: Day 3/5 Ceftriaxone 1g IV q24; day 3/3 Azithromycin 500mg PO q24. Blood cultures NGTD. Leukopenia stable. Lasix 20mg continued to continue euovolemic status with increased fluids administered with blood transfusions. Initiated 40mg Solu-medrol IV TID for concern for gemcitabine induced pneumonitis. Will wean as tolerated/with improvement. Qualifiers: Laterality: unspecified laterality Lung location: unspecified part of lung Pneumonia type: due to unspecified organism Qualified Code(s): J18.9 - Pneumonia, unspecified organism (3) Anemia due to chemotherapy: Impression: Patient has pancytopenia, likely as a result of chemotherapy side effects. AM labs WBC 2.8, Hgb 6.9/ Hct 20.4 - second unit of PRBCs this AM. serial CBCs. No active signs of bleeding noted. Pre-treated w/ APAP c/f febrile nonhemolytic transfusion reaction w/ no other s/s's. blood smear showed no hemolysis. Pathologist reviewed reaction with pretreatment reccomendations. (4) Hypokalemia: Impression: AM Potassium 3.3, repleted. Continue to trend daily.
[2024-08-24] MEDS: POTASSIUM CHLORIDE 20 MEQ TABLET PO ONE (10:56)
[2024-08-24] MEDS: SODIUM CHLORIDE FLUSH 0.9% 10 ML SYRINGE IVP PRN (20:59)
[2024-08-25 06:36] LABS: HCT - HEMATOCRIT 22.6 % (42.0-52.0); HGB - HEMOGLOBIN 7.6 g/dL (14.0-18.0); LYMPHOCYTES # (AUTO) 0.3 10^3/uL (1.5-3.5); LYMPHOCYTES % (AUTO) 7.3 %; MEAN CORPUSCULAR HEMOGLOBIN 29.7 pg (27.0-31.0); MEAN CORPUSCULAR HGB CONC 33.6 g/dL (32.0-36.0); MEAN CORPUSCULAR VOLUME 88.3 fL (80.0-94.0); MEAN PLATELET VOLUME 11.1 fL (7.4-11.4); MONOCYTES # (AUTO) 0.2 10^3/uL (0.0-1.0); MONOCYTES % (AUTO) 5.7 %; NEUTROPHILS # (AUTO) 3.3 10^3/uL (1.5-6.6); NEUTROPHILS % (AUTO) 86.5 %; PLT - PLATELET COUNT 154 10^3/uL (130-450); RED BLOOD COUNT 2.56 10^6/uL (4.70-6.10); RED CELL DISTRIBUTION WIDTH 14.4 % (12.0-15.0); WHITE BLOOD COUNT 3.9 x10^3/uL (4.8-10.8)
[2024-08-25 06:52] LABS: CALCIUM 8.7 mg/dL (8.5-10.3); CREATININE 0.8 mg/dL (0.6-1.3)
--- NOTE | 2024-08-25 08:21 | XRAY Report ---
PROCEDURE: XR Chest 1V INDICATIONS: RICARDO TECHNIQUE: One view of the chest was acquired. COMPARISON: 08/24/2024 FINDINGS: Surgical changes and devices: Right chest wall Port-A-Cath in stable position.. Lungs and pleura: Extensive bilateral airspace opacities appear more dense than prior. Mediastinum: Mediastinal contours appear normal. Heart size is normal. Bones and chest wall: No suspicious bony lesions. Overlying soft tissues appear unremarkable. IMPRESSION: Extensive bilateral airspace opacities appear more dense than prior. Reviewed by: Denny Wesley MD on 08/25/2024 8:20 AM PST Approved by: Denny Wesley MD on 08/25/2024 8:20 AM PST Station ID: [id number]
[2024-08-25] MEDS ORDERED: iohexoL-300 100 ML VIAL ONE (08:41)
[2024-08-25] MEDS: FUROSEMIDE 20 MG/2 ML VIAL IVP SCH (09:00)
[2024-08-25] MEDS: CEFEPIME 2 GM VIAL IVP SCH (14:09)
--- NOTE | 2024-08-25 14:26 | PROVIDER PROGRESS NOTE ---
Subjective Subjective Subjective: Patient is a 59-year-old male with a history of stage IV pancreatic cancer on maintenance chemotherapy who presented for dyspnea, fevers, chills. Being treated as community-acquired pneumonia. Concern for gemcitabine induced pneumonitis as patient has diffuse interstitial edema. Chest x-ray appears the same or worse since admission. Chest CT ordered. Initially had spoken with the patient, and he was okay with transfer anywhere. We talked about need for transfer due to possible BAL or concern for deterioration with worsening pulmonary status. [facility] was called, they do have a bed available for him. However, stated that she does not want to go there anymore. Will call more hospitals including [facility]. Current Medications Current Medications Current Medications: Current Medications Generic Name Dose Route Start Last Admin Trade Name Freq PRN Reason Stop Dose Admin Acetaminophen 650 mg 08/22/24 20:52 08/25/24 14:09 Acetaminophen 325 Mg Tablet PO 650 mg Q4HR PRN Administration Pain 1 to 4, or Fever Alprazolam 1 mg 08/23/24 17:30 08/25/24 05:15 Alprazolam 0.25 Mg Tablet PO 1 mg BID PRN Administration anxiety Cefepime HCl 2 gm 08/25/24 14:00 08/25/24 14:09 Cefepime 2 Gm Vial IVP 2 gm Q8HR JAYE Administration Furosemide 20 mg 08/25/24 09:00 08/25/24 09:00 Furosemide 20 Mg/2 Ml Vial IVP 20 mg DAILY JAYE Administration Heparin Sodium (Beef Lung) 300 - 500 unit 08/22/24 22:32 Heparin Flush 500 Units/5 Ml Syringe IVP PRN PRN Port Protocol (>24 hours) Heparin Sodium (Beef Lung) 30 - 50 unit 08/22/24 22:32 08/24/24 20:59 Heparin Flush 50 Units/5 Ml Syringe IVP 50 unit PRN PRN Administration Port Protocol (<24 hours) Methadone HCl 2.5 mg 08/23/24 06:00 08/25/24 05:14 Methadone 5 Mg Tablet PO 2.5 mg 0600,1800 JAYE Administration Methylprednisolone 40 mg 08/24/24 08:00 08/25/24 14:09 Methylprednisolone Succinate 40 Mg/Ml Vial IVP 40 mg TID JAYE Administration Metoclopramide HCl 10 mg 08/22/24 22:00 08/25/24 11:20 Metoclopramide 10 Mg Tablet PO 10 mg ACHS JAYE Administration Mirtazapine 7.5 mg 08/24/24 09:00 08/25/24 07:54 Mirtazapine 15 Mg Tablet PO 7.5 mg DAILY JAYE Administration Multivitamins/Minerals 1 tab 08/24/24 08:00 08/25/24 07:54 Multivitamin W/Minerals Tablet PO 1 tab DAILYWM JAYE Administration Ondansetron HCl 4 mg 08/22/24 20:52 Ondansetron Odt 4 Mg Tablet TL Q6HR PRN Nausea / Vomiting Ondansetron HCl 4 mg 08/22/24 20:52 Ondansetron 4 Mg/2 Ml Vial IVP Q6HR PRN Nausea / Vomiting Oxycodone HCl 5 mg 08/22/24 20:52 Oxycodone 5 Mg Tablet PO Q4HR PRN Pain 5 to 7 Lipase-Protease- 2 - 4 each 08/23/24 12:00 08/25/24 11:46 Amylase [Creon] 36, PO 3 each 000-114,000- 180,000 TIDWM JAYE Administration Unit Capsule,De Promethazine HCl 25 mg 08/23/24 06:00 08/25/24 05:15 Promethazine 25 Mg Tablet PO 25 mg 0600,1800 JAYE Administration Sodium Chloride 10 ml 08/22/24 20:52 08/24/24 20:59 Sodium Chloride Flush 0.9% 10 Ml Syringe IVP 10 ml PRN PRN Administration NEEDED PER PROVIDER ORDERS Sodium Chloride 10 ml 08/23/24 01:00 08/25/24 09:00 Sodium Chloride Flush 0.9% 10 Ml Syringe IVP 10 ml 0100,0900,1700 JAYE Administration Objective Vital Signs/Intake & Output Reviewed Vital Signs: Yes Vital Signs: Vital Signs x48h Temp Pulse Resp BP Pulse Ox O2 Flow Rate 08/25/24 08:53 6 08/25/24 08:29 97.5 F L 95 20 116/76 92 6 Intake & Output: Intake & Output 08/22/24 08/23/24 08/24/24 08/25/24 23:59 23:59 23:59 23:59 Intake Total 2250 / 2250 3960 / 3960 1510 / 1510 720 / 720 Output Total 300 / 300 3745 / 3745 1400 / 1400 800 / 800 Balance 1950 / 1950 215 / 215 110 / 110 -80 / -80 Weight (kg) 96 kg Objective General Appearance: positive No acute distress and Alert; negative Anxious Eyes Bilateral: positive PERRL, EOMI, Conjunctivae nml and No scleral icterus ENT: positive ENT inspection nml Neck: positive Nml inspection Respiratory: positive No respiratory distress and Rales (mild fine crackles noted, more pronounced at bases); negative Wheezes Cardiovascular: positive Regular rate & rhythm, No murmur and No gallop; negative Diastolic murmur Peripheral Pulses: 2+: Radial (R), 2+: Radial (L), 2+: Dorsalis pedis (R) and 2+: Dorsalis pedis (L) Abdomen: positive Non-tender, Nml bowel sounds and No distention; negative Guarding, Hepatomegaly or Splenomegaly Back: positive Nml inspection Skin: positive Warm and Pallor (decreased from AM assessment) Extremities: positive Non-tender and No pedal edema Neurologic/Psychiatric: positive Oriented x3, CN's nml (2-12), Motor nml and Weakness Lab Results 08/25/24 06:15 08/25/24 06:15 Other Labs: Lab Results x24hrs 08/25/24 08/25/24 08/22/24 Range/Units 09:00 06:15 19:22 WBC 3.9 L (4.8-10.8) x10^3/uL RBC 2.56 L (4.70-6.10) 10^6/uL Hgb 7.6 L (14.0-18.0) g/dL Hct 22.6 L (42.0-52.0) % MCV 88.3 (80.0-94.0) fL MCH 29.7 (27.0-31.0) pg MCHC 33.6 (32.0-36.0) g/dL RDW 14.4 (12.0-15.0) % Plt Count 154 (130-450) 10^3/uL MPV 11.1 (7.4-11.4) fL Neut # (Auto) 3.3 (1.5-6.6) 10^3/uL Lymph # (Auto) 0.3 L (1.5-3.5) 10^3/uL Trigg # (Auto) 0.2 (0.0-1.0) 10^3/uL Eos # (Auto) 0.0 (0.0-0.7) 10^3/uL Baso # (Auto) 0.0 (0.0-0.1) 10^3/uL Absolute Nucleated RBC 0.00 x10^3/uL Nucleated RBC % 0.0 /100WBC Sodium 131 L (135-145) mmol/L Potassium 4.0 (3.5-4.5) mmol/L Chloride 97 L (101-111) mmol/L Carbon Dioxide 27 (21-32) mmol/L Anion Gap 7.0 (6-13) BUN 22 H (6-20) mg/dL Creatinine 0.8 (0.6-1.3) mg/dL Estimated GFR (MDRD) 99 (>89) Glucose 285 H (74-104) mg/dL Calcium 8.7 (8.5-10.3) mg/dL Nasal Screen MRSA (PCR) NEGATIVE (NEGATIVE) Crossmatch IS Only See Detail Diagnostic Imaging Diagnostic Imaging Results: positive Final report reviewed Sepsis Event Note (H) Sepsis Criteria Sepsis Criteria: Recorded Temperature greater than 38.3C or Less than 36C, Recorded Heart Rate greater than 90 bpm and Respiratory: Increasing oxygen requirements Assessment/Plan Problem List (1) Acute respiratory failure with hypoxia: Impression: Treatment escalated to include cefepime today to cover for possible Pseudomonas. Azithromycin completed. MRSA swab negative, will hold off on vancomycin at this time. Concern for gemcitabine induced pneumonitis. Started on IV Solu-Medrol 40 mg 3 times a day. Continue chest x-rays. CT ordered, pending. Echo reviewed, shows normal systolic function and diastolic function. (2) Pneumonia: Impression: Escalated to cefepime. Lasix 20mg continued to continue euovolemic status with increased fluids administered with blood transfusions. Continue 40mg Solu-medrol IV TID for concern for gemcitabine induced pneumonitis. Will wean as tolerated/with improvement. Qualifiers: Laterality: unspecified laterality Lung location: unspecified part of lung Pneumonia type: due to unspecified organism Qualified Code(s): J18.9 - Pneumonia, unspecified organism (3) Anemia due to chemotherapy: Impression: Patient has pancytopenia, likely as a result of chemotherapy side effects. Transfuse for Hb<7. No active signs of bleeding noted. Pre-treated w/ APAP c/f febrile nonhemolytic transfusion reaction w/ no other s/s's. blood smear showed no hemolysis. Pathologist reviewed reaction with pretreatment recommendations. (4) Hypokalemia: Impression: Repleted. Continue to trend daily. (5) Pancreatic cancer: Impression: Oncologist contacted today, Dr. Misbah Key in [place], [place], states cancer has been "stable" for past 2-3 months. On "maintenance dosing" of Gemcitabine + Abraxane. Continue home med-Reglan for N/V, Methadone 2.5mg and Phenergan 25mg/ day for pain. Continue home Creon dosing as well. Qualifiers: Pancreatic malignancy location: unspecified Qualified Code(s): C25.9 - Malignant neoplasm of pancreas, unspecified
--- NOTE | 2024-08-25 16:42 | CT Report ---
PROCEDURE: CT Angio Chest INDICATIONS: assess multifocal pneumonia, ?empyema, ?pe CONTRAST: 80 ML OMNI TECHNIQUE: After the administration of intravenous contrast, 2 mm axial images were acquired from the pulmonary apices to the posterior costophrenic angles during the arterial phase. In addition, 1 mm lung kernel and 5 mm soft tissue kernel reconstructions were performed. 3-dimensional coronal oblique maximum int ensity projection (MIP) reformats, 8 mm axial MIP, and 5 mm coronal and sagittal MPR reformats were t hen performed through the thorax. For radiation dose reduction, the following was used: automated exp osure control, adjustment of mA and/or kV according to patient size. COMPARISON: Same day chest x-ray. FINDINGS: Image quality: Excellent. Large vessels: No filling defects within the opacified pulmonary arteries, accounting for motion and contrast timing. No evidence of acute aortic syndrome or aortic aneurysm. Lungs and pleura: Small bilateral pleural effusions. Diffuse groundglass and consolidative opacities throughout the bilateral lung [place]. No empyema. Mediastinum: Heart size is normal. No pericardial effusion. No large vessel abnormality. No mediastin al adenopathy by size criteria. Right chest wall Port-A-Cath. Chest wall and lower neck: Thyroid is unremarkable. No axillary or supraclavicular adenopathy by size . Bones: No aggressive osseous abnormality. Degenerative changes of the spine. Upper Abdomen: Splenomegaly. IMPRESSION: 1.No pulmonary embolus. 2.Diffuse groundglass and consolidative opacities throughout the bilateral lung [place] consistent wit h multifocal pneumonia. Small bilateral pleural effusions. Reviewed by: Denny Wesley MD on 08/25/2024 4:41 PM PST Approved by: Denny Wesley MD on 08/25/2024 4:41 PM PST Station ID: [id number]
[2024-08-25 20:07] LABS: MYCOPLASMA PNEUMONIAE IGG ABS 902 U/mL (0-99); MYCOPLASMA PNEUMONIAE IGM ABS <770 U/mL (0-769)
[2024-08-26 05:14] LABS: BASOPHILS % (AUTO) 0.1 %; EOSINOPHILS % (AUTO) 0.1 %; HCT - HEMATOCRIT 24.6 % (42.0-52.0); HGB - HEMOGLOBIN 8.1 g/dL (14.0-18.0); LYMPHOCYTES # (AUTO) 0.4 10^3/uL (1.5-3.5); LYMPHOCYTES % (AUTO) 5.1 %; MEAN CORPUSCULAR HEMOGLOBIN 29.1 pg (27.0-31.0); MEAN CORPUSCULAR HGB CONC 32.9 g/dL (32.0-36.0); MEAN CORPUSCULAR VOLUME 88.5 fL (80.0-94.0); MONOCYTES # (AUTO) 0.5 10^3/uL (0.0-1.0); MONOCYTES % (AUTO) 6.5 %; NEUTROPHILS # (AUTO) 6.1 10^3/uL (1.5-6.6); NEUTROPHILS % (AUTO) 86.5 %; NRBC ABSOLUTE COUNT (AUTO) 0.05 x10^3/uL; NUCLEATED RED BLOOD CELLS AUTO 0.7 /100WBC; PLT - PLATELET COUNT 221 10^3/uL (130-450); RED BLOOD COUNT 2.78 10^6/uL (4.70-6.10); RED CELL DISTRIBUTION WIDTH 14.6 % (12.0-15.0); WHITE BLOOD COUNT 7.1 x10^3/uL (4.8-10.8)
[2024-08-26 05:28] LABS: CALCIUM 9.3 mg/dL (8.5-10.3); CREATININE 0.8 mg/dL (0.6-1.3); MAGNESIUM 1.8 mg/dL (1.7-2.3); POTASSIUM 4.2 mmol/L (3.5-4.5)
[2024-08-26] MEDS: methylPREDNISolone SUCCINATE 40 MG/ML VIAL IVP SCH (08:25)
--- NOTE | 2024-08-26 12:05 | PROVIDER PROGRESS NOTE ---
Subjective Subjective Subjective: Patient is a 59-year-old male with a history of stage IV pancreatic cancer on maintenance chemotherapy who presented for dyspnea, fevers, chills. Treating for multifocal pneumonia, as well as concern for gemcitabine induced pneumonitis. Initially had spoken with the patient, and he was okay with transfer anywhere. We talked about need for transfer due to possible BAL or concern for deterioration with worsening pulmonary status. [facility] was called, they did have a bed available for him. However, stated that she does not want to go there anymore. Will call more hospitals including [facility], [facility]. This morning, patient states he is feeling better. He still has a cough. He would like to test his endurance by walking around. He is still requiring 6 L. He has no fevers or chills. He does occasionally have the sweats. He has no active bleeding noted. Current Medications Current Medications Current Medications: Current Medications Generic Name Dose Route Start Last Admin Trade Name Freq PRN Reason Stop Dose Admin Acetaminophen 650 mg 08/22/24 20:52 08/25/24 14:09 Acetaminophen 325 Mg Tablet PO 650 mg Q4HR PRN Administration Pain 1 to 4, or Fever Alprazolam 1 mg 08/23/24 17:30 08/25/24 20:34 Alprazolam 0.25 Mg Tablet PO 1 mg BID PRN Administration anxiety Cefepime HCl 2 gm 08/25/24 14:00 08/26/24 06:07 Cefepime 2 Gm Vial IVP 2 gm Q8HR JAYE Administration Furosemide 20 mg 08/25/24 09:00 08/26/24 08:25 Furosemide 20 Mg/2 Ml Vial IVP 20 mg DAILY JAYE Administration Heparin Sodium (Beef Lung) 300 - 500 unit 08/22/24 22:32 Heparin Flush 500 Units/5 Ml Syringe IVP PRN PRN Port Protocol (>24 hours) Heparin Sodium (Beef Lung) 30 - 50 unit 08/22/24 22:32 08/26/24 06:20 Heparin Flush 50 Units/5 Ml Syringe IVP 30 unit PRN PRN Administration Port Protocol (<24 hours) Methadone HCl 2.5 mg 08/23/24 06:00 08/26/24 06:28 Methadone 5 Mg Tablet PO 2.5 mg 0600,1800 AJYE Administration Methylprednisolone 40 mg 08/26/24 09:00 08/26/24 08:25 Methylprednisolone Succinate 40 Mg/Ml Vial IVP 40 mg BID JAYE Administration Metoclopramide HCl 10 mg 08/22/24 22:00 08/26/24 11:06 Metoclopramide 10 Mg Tablet PO 10 mg ACHS JAYE Administration Mirtazapine 7.5 mg 08/24/24 09:00 08/26/24 08:25 Mirtazapine 15 Mg Tablet PO 7.5 mg DAILY JAYE Administration Multivitamins/Minerals 1 tab 08/24/24 08:00 08/26/24 07:45 Multivitamin W/Minerals Tablet PO 1 tab DAILYWM JAYE Administration Ondansetron HCl 4 mg 08/22/24 20:52 Ondansetron Odt 4 Mg Tablet TL Q6HR PRN Nausea / Vomiting Ondansetron HCl 4 mg 08/22/24 20:52 Ondansetron 4 Mg/2 Ml Vial IVP Q6HR PRN Nausea / Vomiting Oxycodone HCl 5 mg 08/22/24 20:52 Oxycodone 5 Mg Tablet PO Q4HR PRN Pain 5 to 7 Lipase-Protease- 2 - 4 each 08/23/24 12:00 08/26/24 11:46 Amylase [Creon] 36, PO 3 each 000-114,000- 180,000 TIDWM JAYE Administration Unit Capsule,De Promethazine HCl 25 mg 08/23/24 06:00 08/26/24 06:28 Promethazine 25 Mg Tablet PO 25 mg 0600,1800 JAYE Administration Sodium Chloride 10 ml 08/22/24 20:52 08/25/24 22:17 Sodium Chloride Flush 0.9% 10 Ml Syringe IVP 10 ml PRN PRN Administration NEEDED PER PROVIDER ORDERS Sodium Chloride 10 ml 08/23/24 01:00 08/26/24 08:25 Sodium Chloride Flush 0.9% 10 Ml Syringe IVP 10 ml 0100,0900,1700 JAYE Administration Objective Vital Signs/Intake & Output Reviewed Vital Signs: Yes Vital Signs: Vital Signs x48h Temp Pulse Resp BP Pulse Ox O2 Flow Rate 08/26/24 08:51 97.9 F 102 H 20 122/78 92 6 08/26/24 07:00 6 Intake & Output: Intake & Output 08/23/24 08/24/24 08/25/2414/25 23:59 23:59 23:59 23:59 Intake Total 3960 / 3960 1510 / 1510 1360 / 1360 712 / 712 Output Total 3745 / 3745 1400 / 1400 1100 / 1100 Balance 215 / 215 110 / 110 260 / 260 712 / 712 Objective General Appearance: positive No acute distress and Alert; negative Anxious Eyes Bilateral: positive PERRL, EOMI, Conjunctivae nml and No scleral icterus ENT: positive ENT inspection nml Neck: positive Nml inspection Respiratory: positive No respiratory distress and Rales (mild fine crackles noted, more pronounced at bases); negative Wheezes Cardiovascular: positive Regular rate & rhythm, No murmur and No gallop; negative Diastolic murmur Peripheral Pulses: 2+: Radial (R), 2+: Radial (L), 2+: Dorsalis pedis (R) and 2+: Dorsalis pedis (L) Abdomen: positive Non-tender, Nml bowel sounds and No distention; negative Guarding, Hepatomegaly or Splenomegaly Back: positive Nml inspection Skin: positive Warm and Pallor (decreased from AM assessment) Extremities: positive Non-tender and No pedal edema Neurologic/Psychiatric: positive Oriented x3, CN's nml (2-12), Motor nml and Weakness Lab Results 08/26/24 05:11 08/26/24 05:11 Other Labs: Lab Results x24hrs 08/26/24 08/23/24 Range/Units 05:11 05:03 WBC 7.1 (4.8-10.8) x10^3/uL RBC 2.78 L (4.70-6.10) 10^6/uL Hgb 8.1 L (14.0-18.0) g/dL Hct 24.6 L (42.0-52.0) % MCV 88.5 (80.0-94.0) fL MCH 29.1 (27.0-31.0) pg MCHC 32.9 (32.0-36.0) g/dL RDW 14.6 (12.0-15.0) % Plt Count 221 (130-450) 10^3/uL MPV 11.0 (7.4-11.4) fL Neut # (Auto) 6.1 (1.5-6.6) 10^3/uL Lymph # (Auto) 0.4 L (1.5-3.5) 10^3/uL [place] # (Auto) 0.5 (0.0-1.0) 10^3/uL Eos # (Auto) 0.0 (0.0-0.7) 10^3/uL Baso # (Auto) 0.0 (0.0-0.1) 10^3/uL Absolute Nucleated RBC 0.05 x10^3/uL Nucleated RBC % 0.7 /100WBC Sodium 134 L (135-145) mmol/L Potassium 4.2 (3.5-4.5) mmol/L Chloride 100 L (101-111) mmol/L Carbon Dioxide 27 (21-32) mmol/L Anion Gap 7.0 (6-13) BUN 25 H (6-20) mg/dL Creatinine 0.8 (0.6-1.3) mg/dL Estimated GFR (MDRD) 99 (>89) Glucose 230 H (74-104) mg/dL Calcium 9.3 (8.5-10.3) mg/dL Magnesium 1.8 (1.7-2.3) mg/dL Mycoplasma pneumon IgG 902 H (0-99) U/mL Mycoplasma pneumon IgM <770 (0-769) U/mL Diagnostic Imaging Diagnostic Imaging Results: positive Final report reviewed Sepsis Event Note (H) Sepsis Criteria Sepsis Criteria: Recorded Temperature greater than 38.3C or Less than 36C, Recorded Heart Rate greater than 90 bpm and Respiratory: Increasing oxygen requirements Assessment/Plan Problem List (1) Acute respiratory failure with hypoxia: Impression: Treatment escalated to include cefepime today to cover for possible Pseudomonas. Azithromycin completed. MRSA swab negative, will hold off on vancomycin at this time. Concern for gemcitabine induced pneumonitis. Started on IV Solu-Medrol 40 mg 3 times a day. Weaned down to twice a day today. Continue serial chest x-rays. CT confirms multifocal pneumonia. Echo reviewed, shows normal systolic function and diastolic function. (2) Pneumonia: Impression: Escalated to cefepime. Lasix 20mg given the last few days, continue euovolemic status with increased fluids administered with blood transfusions. Continue 40mg Solu-medrol IV BID for concern for gemcitabine induced pneumonitis. Will continue to wean as tolerated/with improvement. Qualifiers: Laterality: unspecified laterality Lung location: unspecified part of lung Pneumonia type: due to unspecified organism Qualified Code(s): J18.9 - Pneumonia, unspecified organism (3) Anemia due to chemotherapy: Impression: Patient has pancytopenia, now improving, likely as a result of chemotherapy side effects. Transfuse for Hb<7. No active signs of bleeding noted. Pre-treated w/ APAP c/f febrile nonhemolytic transfusion reaction w/ no other s/s's. blood smear showed no hemolysis. Pathologist reviewed reaction with pretreatment recommendations. (4) Hypokalemia: Impression: Repleted. Continue to trend daily. (5) Pancreatic cancer: Impression: Oncologist contacted today, Dr. Misbah Key in [place], [place], states cancer has been "stable" for past 2-3 months. On "maintenance dosing" of Gemcitabine + Abraxane. Continue home med-Reglan for N/V, Methadone 2.5mg and Phenergan 25mg/ day for pain. Continue home Creon dosing as well. Qualifiers: Pancreatic malignancy location: unspecified Qualified Code(s): C25.9 - Malignant neoplasm of pancreas, unspecified
[2024-08-26] MEDS: GABAPENTIN 300 MG CAPSULE PO PRN (21:12)
[2024-08-26] MEDS: oxyCODONE 5 MG TABLET PO PRN (22:15)
[2024-08-27 06:17] LABS: BASOPHILS % (AUTO) 0.3 %; EOSINOPHILS % (AUTO) 0.2 %; HGB - HEMOGLOBIN 7.6 g/dL (14.0-18.0); LYMPHOCYTES % (AUTO) 10.1 %; MEAN CORPUSCULAR HEMOGLOBIN 29.6 pg (27.0-31.0); MEAN CORPUSCULAR VOLUME 89.5 fL (80.0-94.0); MONOCYTES % (AUTO) 7.7 %; NEUTROPHILS % (AUTO) 74.4 %; PLT - PLATELET COUNT 223 10^3/uL (130-450); RED BLOOD COUNT 2.57 10^6/uL (4.70-6.10); RED CELL DISTRIBUTION WIDTH 15.1 % (12.0-15.0); WHITE BLOOD COUNT 6.1 x10^3/uL (4.8-10.8)
[2024-08-27 06:21] LABS: ABNORMAL LYMPHS % (MANUAL) 0 %; BAND NEUTROPHILS % (MANUAL) 0 %
[2024-08-27 06:26] LABS: MAGNESIUM 1.6 mg/dL (1.7-2.3)
[2024-08-27 06:31] LABS: CALCIUM 8.3 mg/dL (8.5-10.3); CREATININE 0.9 mg/dL (0.6-1.3); POTASSIUM 4.2 mmol/L (3.5-4.5)
[2024-08-27 06:43] LABS: LYMPHOCYTES # (MANUAL) 1.1 10^3/uL (1.5-3.5); LYMPHOCYTES % (MANUAL) 18 %; METAMYELOCYTES % (MANUAL) 1 %; MONOCYTES # (MANUAL) 0.1 10^3/uL (0.0-1.0); MYELOCYTES % (MANUAL) 3 %; NEUTROPHILS # (MANUAL) 4.6 10^3/uL (1.5-6.6)
[2024-08-27 06:50] LABS: PLATELET ESTIMATE, MANUAL NORMAL (130-450,000) (NORMAL); PLATELET MORPHOLOGY NORMAL APPEARANCE (NORMAL); RBC MORPHOLOGY (MULTIPLE) NORMAL APPEARANCE (NORMAL); WBC MORPHOLOGY (MULTIPLE) NORMAL APPEARANCE (NORMAL)
[2024-08-27 06:51] LABS: DIFFERENTIAL COMMENT MANUAL DIFFERENTIAL
[2024-08-27] MEDS ORDERED: MAGNESIUM SULFATE 1 GM/2 ML VIAL IVP STA (07:35)
[2024-08-27] MEDS: MAGNESIUM SULFATE 1 GM in SODIUM CHLORIDE 0.9% 50 ML IV ONE (08:07)
[2024-08-27] MEDS: MAGNESIUM OXIDE 400 MG TABLET PO SCH (08:17)
--- NOTE | 2024-08-27 10:08 | PROVIDER PROGRESS NOTE ---
Subjective Subjective Subjective: Patient is a 59-year-old male with a history of stage IV pancreatic cancer on maintenance chemotherapy who presented for dyspnea, fevers, chills. Treating for multifocal pneumonia, as well as concern for gemcitabine induced pneumonitis. This morning, patient states he is feeling better. He still has a cough. He has no fevers or chills. He does occasionally have the sweats. He has no active bleeding noted. He does feel winded after short walks around the hallway. He stated that after his walk yesterday, he had some pain around his legs, which is now resolved. Current Medications Current Medications Current Medications: Current Medications Generic Name Dose Route Start Last Admin Trade Name Freq PRN Reason Stop Dose Admin Acetaminophen 650 mg 08/22/24 20:52 08/25/24 14:09 Acetaminophen 325 Mg Tablet PO 650 mg Q4HR PRN Administration Pain 1 to 4, or Fever Alprazolam 1 mg 08/23/24 17:30 08/26/24 22:15 Alprazolam 0.25 Mg Tablet PO 1 mg BID PRN Administration anxiety Cefepime HCl 2 gm 08/25/24 14:00 08/27/24 05:56 Cefepime 2 Gm Vial IVP 2 gm Q8HR JAYE Administration Furosemide 20 mg 08/25/24 09:00 08/27/24 09:39 Furosemide 20 Mg/2 Ml Vial IVP 20 mg DAILY JAYE Administration Gabapentin 600 mg 08/26/24 19:59 08/26/24 21:12 Gabapentin 300 Mg Capsule PO 600 mg TID PRN Administration PAIN 5-7 Heparin Sodium (Beef Lung) 300 - 500 unit 08/22/24 22:32 Heparin Flush 500 Units/5 Ml Syringe IVP PRN PRN Port Protocol (>24 hours) Heparin Sodium (Beef Lung) 30 - 50 unit 08/22/24 22:32 08/27/24 05:59 Heparin Flush 50 Units/5 Ml Syringe IVP 50 unit PRN PRN Administration Port Protocol (<24 hours) Magnesium Oxide 400 mg 08/27/24 08:00 08/27/24 08:17 Magnesium Oxide 400 Mg Tablet PO 400 mg DAILYWM JAYE Administration Methadone HCl 2.5 mg 08/23/24 06:00 08/27/24 06:26 Methadone 5 Mg Tablet PO 2.5 mg 0600,1800 JAYE Administration Methylprednisolone 40 mg 08/26/24 09:00 08/27/24 09:39 Methylprednisolone Succinate 40 Mg/Ml Vial IVP 40 mg BID JAYE Administration Metoclopramide HCl 10 mg 08/22/24 22:00 08/27/24 06:26 Metoclopramide 10 Mg Tablet PO 10 mg ACHS JAYE Administration Mirtazapine 7.5 mg 08/24/24 09:00 08/27/24 09:39 Mirtazapine 15 Mg Tablet PO 7.5 mg DAILY JAYE Administration Multivitamins/Minerals 1 tab 08/24/24 08:00 08/27/24 08:17 Multivitamin W/Minerals Tablet PO 1 tab DAILYWM JAYE Administration Ondansetron HCl 4 mg 08/22/24 20:52 Ondansetron Odt 4 Mg Tablet TL Q6HR PRN Nausea / Vomiting Ondansetron HCl 4 mg 08/22/24 20:52 Ondansetron 4 Mg/2 Ml Vial IVP Q6HR PRN Nausea / Vomiting Oxycodone HCl 5 mg 08/22/24 20:52 08/26/24 22:15 Oxycodone 5 Mg Tablet PO 5 mg Q4HR PRN Administration Pain 5 to 7 Lipase-Protease- 2 - 4 each 08/23/24 12:00 08/27/24 08:03 Amylase [Creon] 36, PO 3 each 000-114,000- 180,000 TIDWM JAYE Administration Unit Capsule,De Promethazine HCl 25 mg 08/23/24 06:00 08/27/24 06:26 Promethazine 25 Mg Tablet PO 25 mg 0600,1800 JAYE Administration Sodium Chloride 10 ml 08/22/24 20:52 08/27/24 09:39 Sodium Chloride Flush 0.9% 10 Ml Syringe IVP 10 ml PRN PRN Administration NEEDED PER PROVIDER ORDERS Sodium Chloride 10 ml 08/23/24 01:00 08/27/24 08:11 Sodium Chloride Flush 0.9% 10 Ml Syringe IVP 10 ml 0100,0900,1700 JAYE Administration Objective Vital Signs/Intake & Output Reviewed Vital Signs: Yes Vital Signs: Vital Signs x48h Temp Pulse Resp BP Pulse Ox O2 Flow Rate 08/27/24 08:17 98.7 F 90 20 113/74 92 5 Intake & Output: Intake & Output 08/24/24 08/25/24 08/26/2408/27/25 23:59 23:59 23:59 23:59 Intake Total 1510 / 1510 1360 / 1360 1442 / 1442 480 / 480 Output Total 1400 / 1400 1100 / 1100 275 / 275 Balance 110 / 110 260 / 260 1167 / 1167 480 / 480 Objective General Appearance: positive No acute distress and Alert; negative Anxious Eyes Bilateral: positive PERRL, EOMI, Conjunctivae nml and No scleral icterus ENT: positive ENT inspection nml Neck: positive Nml inspection Respiratory: positive No respiratory distress and Rales (mild fine crackles noted, more pronounced at bases); negative Wheezes Cardiovascular: positive Regular rate & rhythm, No murmur and No gallop; negative Diastolic murmur Peripheral Pulses: 2+: Radial (R), 2+: Radial (L), 2+: Dorsalis pedis (R) and 2+: Dorsalis pedis (L) Abdomen: positive Non-tender, Nml bowel sounds and No distention; negative Guarding, Hepatomegaly or Splenomegaly Back: positive Nml inspection Skin: positive Warm and Pallor (decreased from AM assessment) Extremities: positive Non-tender and No pedal edema Neurologic/Psychiatric: positive Oriented x3, CN's nml (2-12), Motor nml and Weakness Lab Results 08/27/24 06:13 08/27/24 06:13 Other Labs: Lab Results x24hrs 08/27/24 Range/Units 06:13 WBC 6.1 (4.8-10.8) x10^3/uL RBC 2.57 L (4.70-6.10) 10^6/uL Hgb 7.6 L (14.0-18.0) g/dL Hct 23.0 L (42.0-52.0) % MCV 89.5 (80.0-94.0) fL MCH 29.6 (27.0-31.0) pg MCHC 33.0 (32.0-36.0) g/dL RDW 15.1 H (12.0-15.0) % Plt Count 223 (130-450) 10^3/uL MPV 10.0 (7.4-11.4) fL Neut # (Auto) Not Reportable Lymph # (Auto) Not Reportable [place] # (Auto) Not Reportable Eos # (Auto) Not Reportable Baso # (Auto) Not Reportable Absolute Nucleated RBC Not Reportable Total Counted 100 Band Neuts % (Manual) 0 (0 - 10) % Abnorm Lymph % (Manual) 0 % Metamyelocytes % 1 H ( - 0) % Myelocytes % 3 H ( - 0) % Nucleated RBC % Not Reportable Neutrophils # (Manual) 4.6 (1.5-6.6) 10^3/uL Lymphocytes # (Manual) 1.1 L (1.5-3.5) 10^3/uL Monocytes # (Manual) 0.1 (0.0-1.0) 10^3/uL Eosinophils # (Manual) 0.0 (0-0.7) 10^3/uL Basophils # (Manual) 0.0 (0-0.1) 10^3/uL Differential Comment MANUAL DIFFERENTIAL WBC Morphology NORMAL APPEARANCE (NORMAL) Platelet Estimate NORMAL (130-450,000) (NORMAL) Platelet Morphology NORMAL APPEARANCE (NORMAL) RBC Morph Micro Appear NORMAL APPEARANCE (NORMAL) Sodium 135 (135-145) mmol/L Potassium 4.2 (3.5-4.5) mmol/L Chloride 101 (101-111) mmol/L Carbon Dioxide 30 (21-32) mmol/L Anion Gap 4.0 L (6-13) BUN 25 H (6-20) mg/dL Creatinine 0.9 (0.6-1.3) mg/dL Estimated GFR (MDRD) 86 L (>89) Glucose 186 H (74-104) mg/dL Calcium 8.3 L (8.5-10.3) mg/dL Magnesium 1.6 L (1.7-2.3) mg/dL Diagnostic Imaging Diagnostic Imaging Results: positive Final report reviewed Sepsis Event Note (H) Sepsis Criteria Sepsis Criteria: Recorded Temperature greater than 38.3C or Less than 36C, Recorded Heart Rate greater than 90 bpm and Respiratory: Increasing oxygen requirements Assessment/Plan Problem List (1) Acute respiratory failure with hypoxia: Impression: Treatment escalated to include cefepime to cover for possible Pseudomonas. Azithromycin completed. MRSA swab negative, will hold off on vancomycin at this time. Concern for gemcitabine induced pneumonitis. Started on IV Solu-Medrol 40 mg 3 times a day. Weaned down to twice a day. Will go to once a day tomorrow, then switch to a prednisone taper. Continue serial chest x-rays. CT confirms multifocal pneumonia. Echo reviewed, shows normal systolic function and diastolic function. (2) Pneumonia: Impression: Escalated to cefepime. Lasix 20mg given the last few days, continue euovolemic status with increased fluids administered with blood transfusions. Continue 40mg Solu-medrol IV BID for concern for gemcitabine induced pneumonitis. Will continue to wean as tolerated/with improvement. Qualifiers: Laterality: unspecified laterality Lung location: unspecified part of lung Pneumonia type: due to unspecified organism Qualified Code(s): J18.9 - Pneumonia, unspecified organism (3) Anemia due to chemotherapy: Impression: Patient has pancytopenia, now improving, likely as a result of chemotherapy side effects. Transfuse for Hb<7. No active signs of bleeding noted. Pre-treated w/ APAP c/f febrile nonhemolytic transfusion reaction w/ no other s/s's. blood smear showed no hemolysis. Pathologist reviewed reaction with pretreatment recommendations. (4) Hypokalemia: Impression: Repleted. Continue to trend daily. (5) Pancreatic cancer: Impression: Oncologist contacted today, Dr. Misbah Key in [place], [place], states cancer has been "stable" for past 2-3 months. On "maintenance dosing" of Gemcitabine + Abraxane. Continue home med-Reglan for N/V, Methadone 2.5mg and Phenergan 25mg/ day for pain. Continue home Creon dosing as well. Qualifiers: Pancreatic malignancy location: unspecified Qualified Code(s): C25.9 - Malignant neoplasm of pancreas, unspecified
[2024-08-28 04:46] LABS: HCT - HEMATOCRIT 24.6 % (42.0-52.0); MEAN CORPUSCULAR HEMOGLOBIN 29.5 pg (27.0-31.0); MEAN CORPUSCULAR HGB CONC 32.5 g/dL (32.0-36.0); MEAN CORPUSCULAR VOLUME 90.8 fL (80.0-94.0); MEAN PLATELET VOLUME 10.2 fL (7.4-11.4); RED BLOOD COUNT 2.71 10^6/uL (4.70-6.10); RED CELL DISTRIBUTION WIDTH 15.4 % (12.0-15.0); WHITE BLOOD COUNT 6.4 x10^3/uL (4.8-10.8)
[2024-08-28 05:01] LABS: CALCIUM 8.5 mg/dL (8.5-10.3); CREATININE 0.8 mg/dL (0.6-1.3); POTASSIUM 4.8 mmol/L (3.5-4.5)
--- NOTE | 2024-08-28 10:14 | XRAY Report ---
PROCEDURE: XR Chest 1V INDICATIONS: [place] TECHNIQUE: One view of the chest was acquired. COMPARISON: 08/25/2024 (plain film and CT) FINDINGS: Surgical changes and devices: There is a right-sided chest port, with the tip overlying the superior vena cava. Lungs and pleura: Bilateral abnormal interstitial infiltrates are seen. The pulmonary aeration is cl early improved compared to the 08/25/2024 examination. No pneumothorax or large pleural effusion can b e seen. Mediastinum: Mediastinal contours appear normal. Heart size is normal. Bones and chest wall: No suspicious bony lesions. Age-appropriate degenerative changes are seen. O verlying soft tissues appear unremarkable. IMPRESSION: Generalized interstitial type infiltrates are seen, with clear interval improvement in the degree of pulmonary aeration compared to 08/25/2024. Reviewed by: Ugo Arteaga MD on 08/28/2024 9:13 AM [facility] Approved by: Ugo Arteaga MD on 08/28/2024 9:13 AM [facility] Station ID: [id number]
--- NOTE | 2024-08-28 11:07 | PROVIDER PROGRESS NOTE ---
Subjective Subjective Subjective: Patient is a 59-year-old male with a history of stage IV pancreatic cancer on maintenance chemotherapy who presented for dyspnea, fevers, chills. Treating for multifocal pneumonia, as well as concern for gemcitabine induced pneumonitis. This morning, patient states he is feeling better. He still has a cough. He has no fevers or chills. He does occasionally have the sweats. He has no active bleeding noted. He does feel winded after short walks around the hallway. He stated that after his walk yesterday, he had some pain around his legs, which is now resolved. This morning, patient feels better. He denies any fevers or chills. He feels like his breathing is getting better. He has no muscle pain or cramping at this time. We discussed the plantoday will be likely his last day of IV antibiotics. Will then transition him to oral antibiotics to complete a 10-day course. We will also be discharging him on a prednisone taper, likely tomorrow. He's going to need home oxygen. Today will be his last day of Solu-Medrol IV. Tomorrow we will start him on some prednisone 40 mg and will slowly taper this down in the outpatient setting. His was on the phone as well, and she is agreeable with the plan. Current Medications Current Medications Current Medications: Current Medications Generic Name Dose Route Start Last Admin Trade Name Freq PRN Reason Stop Dose Admin Acetaminophen 650 mg 08/22/24 20:52 08/25/24 14:09 Acetaminophen 325 Mg Tablet PO 650 mg Q4HR PRN Administration Pain 1 to 4, or Fever Alprazolam 1 mg 08/23/24 17:30 08/27/24 20:11 Alprazolam 0.25 Mg Tablet PO 1 mg BID PRN Administration anxiety Cefepime HCl 2 gm 08/25/24 14:00 08/28/24 06:20 Cefepime 2 Gm Vial IVP 2 gm Q8HR JAYE Administration Furosemide 20 mg 08/25/24 09:00 08/28/24 09:04 Furosemide 20 Mg/2 Ml Vial IVP 20 mg DAILY JAYE Administration Gabapentin 600 mg 08/26/24 19:59 08/27/24 20:11 Gabapentin 300 Mg Capsule PO 600 mg TID PRN Administration PAIN 5-7 Heparin Sodium (Beef Lung) 300 - 500 unit 08/22/24 22:32 Heparin Flush 500 Units/5 Ml Syringe IVP PRN PRN Port Protocol (>24 hours) Heparin Sodium (Beef Lung) 30 - 50 unit 08/22/24 22:32 08/28/24 04:19 Heparin Flush 50 Units/5 Ml Syringe IVP 50 unit PRN PRN Administration Port Protocol (<24 hours) Magnesium Oxide 400 mg 08/27/24 08:00 08/28/24 08:00 Magnesium Oxide 400 Mg Tablet PO 400 mg DAILYWM JAYE Administration Methadone HCl 2.5 mg 08/23/24 06:00 08/28/24 06:18 Methadone 5 Mg Tablet PO 2.5 mg 0600,1800 JAYE Administration Methylprednisolone 40 mg 08/26/24 09:00 08/28/24 09:05 Methylprednisolone Succinate 40 Mg/Ml Vial IVP 40 mg BID JAYE Administration Metoclopramide HCl 10 mg 08/22/24 22:00 08/28/24 10:49 Metoclopramide 10 Mg Tablet PO 10 mg ACHS JAYE Administration Mirtazapine 7.5 mg 08/24/24 09:00 08/28/24 09:05 Mirtazapine 15 Mg Tablet PO 7.5 mg DAILY JAYE Administration Multivitamins/Minerals 1 tab 08/24/24 08:00 08/28/24 07:59 Multivitamin W/Minerals Tablet PO 1 tab DAILYWM JAYE Administration Ondansetron HCl 4 mg 08/22/24 20:52 Ondansetron Odt 4 Mg Tablet TL Q6HR PRN Nausea / Vomiting Ondansetron HCl 4 mg 08/22/24 20:52 Ondansetron 4 Mg/2 Ml Vial IVP Q6HR PRN Nausea / Vomiting Oxycodone HCl 5 mg 08/22/24 20:52 08/26/24 22:15 Oxycodone 5 Mg Tablet PO 5 mg Q4HR PRN Administration Pain 5 to 7 Lipase-Protease- 2 - 4 each 08/23/24 12:00 08/28/24 07:59 Amylase [Creon] 36, PO 3 each 000-114,000- 180,000 TIDWM JAYE Administration Unit Capsule,De Promethazine HCl 25 mg 08/23/24 06:00 08/28/24 06:19 Promethazine 25 Mg Tablet PO 25 mg 0600,1800 JAYE Administration Sodium Chloride 10 ml 08/22/24 20:52 08/27/24 13:40 Sodium Chloride Flush 0.9% 10 Ml Syringe IVP 10 ml PRN PRN Administration NEEDED PER PROVIDER ORDERS Sodium Chloride 10 ml 08/23/24 01:00 08/28/24 09:05 Sodium Chloride Flush 0.9% 10 Ml Syringe IVP 10 ml 0100,0900,1700 JAYE Administration Objective Vital Signs/Intake & Output Reviewed Vital Signs: Yes Vital Signs: Vital Signs x48h Temp Pulse Resp BP Pulse Ox O2 Flow Rate 08/28/24 07:56 98.1 F 80 18 96/66 94 5 Intake & Output: Intake & Output 08/25/24 08/26/24 08/27/24 08/28/24 23:59 23:59 23:59 23:59 Intake Total 1360 / 1360 1442 / 1442 1724 / 1724 522 / 522 Output Total 1100 / 1100 275 / 275 775 / 775 1300 / 1300 Balance 260 / 260 1167 / 1167 949 / 949 -778 / -778 Objective General Appearance: positive No acute distress and Alert; negative Anxious Eyes Bilateral: positive PERRL, EOMI, Conjunctivae nml and No scleral icterus ENT: positive ENT inspection nml Neck: positive Nml inspection Respiratory: positive No respiratory distress and Rales (mild fine crackles noted, more pronounced at bases); negative Wheezes Cardiovascular: positive Regular rate & rhythm, No murmur and No gallop; negative Diastolic murmur Peripheral Pulses: 2+: Radial (R), 2+: Radial (L), 2+: Dorsalis pedis (R) and 2+: Dorsalis pedis (L) Abdomen: positive Non-tender, Nml bowel sounds and No distention; negative Guarding, Hepatomegaly or Splenomegaly Back: positive Nml inspection Skin: positive Warm and Pallor (decreased from AM assessment) Extremities: positive Non-tender and No pedal edema Neurologic/Psychiatric: positive Oriented x3, CN's nml (2-12), Motor nml and Weakness Lab Results 08/28/24 04:26 08/28/24 04:26 Other Labs: Lab Results x24hrs 08/28/24 Range/Units 04:26 WBC 6.4 (4.8-10.8) x10^3/uL RBC 2.71 L (4.70-6.10) 10^6/uL Hgb 8.0 L (14.0-18.0) g/dL Hct 24.6 L (42.0-52.0) % MCV 90.8 (80.0-94.0) fL MCH 29.5 (27.0-31.0) pg MCHC 32.5 (32.0-36.0) g/dL RDW 15.4 H (12.0-15.0) % Plt Count 243 (130-450) 10^3/uL MPV 10.2 (7.4-11.4) fL Sodium 135 (135-145) mmol/L Potassium 4.8 H (3.5-4.5) mmol/L Chloride 97 L (101-111) mmol/L Carbon Dioxide 32 (21-32) mmol/L Anion Gap 6.0 (6-13) BUN 23 H (6-20) mg/dL Creatinine 0.8 (0.6-1.3) mg/dL Estimated GFR (MDRD) 99 (>89) Glucose 263 H (74-104) mg/dL Calcium 8.5 (8.5-10.3) mg/dL Magnesium 2.0 (1.7-2.3) mg/dL Diagnostic Imaging Diagnostic Imaging Results: positive Final report reviewed Sepsis Event Note (H) Sepsis Criteria Sepsis Criteria: Recorded Temperature greater than 38.3C or Less than 36C, Recorded Heart Rate greater than 90 bpm and Respiratory: Increasing oxygen requirements Assessment/Plan Problem List (1) Acute respiratory failure with hypoxia: Impression: Treatment escalated to include cefepime to cover for possible Pseudomonas. Azithromycin completed. MRSA swab negative, will hold off on vancomycin at this time. Concern for gemcitabine induced pneumonitis. Started on IV Solu-Medrol 40 mg 3 times a day. Weaned down to twice a day, now once a day. Plan to switch to a prednisone taper. Continue serial chest x-rays - this morning, there is much improvenent. CT confirms multifocal pneumonia. Echo reviewed, shows normal systolic function and diastolic function. (2) Pneumonia: Impression: Escalated to cefepime. Lasix 20mg given the last few days, continue euovolemic status with increased fluids administered with blood transfusions. Started on IV Solu-Medrol 40 mg 3 times a day. Weaned down to twice a day, now once a day. Plan to switch to a prednisone taper tomorrow. Qualifiers: Laterality: unspecified laterality Lung location: unspecified part of lung Pneumonia type: due to unspecified organism Qualified Code(s): J18.9 - Pneumonia, unspecified organism (3) Anemia due to chemotherapy: Impression: Patient has pancytopenia, now improving, likely as a result of chemotherapy side effects. Transfuse for Hb<7. No active signs of bleeding noted. Pre-treated w/ APAP c/f febrile nonhemolytic transfusion reaction w/ no other s/s's. blood smear showed no hemolysis. Pathologist reviewed reaction with pretreatment recommendations. (4) Hypokalemia: Impression: Repleted. Continue to trend daily. (5) Pancreatic cancer: Impression: Oncologist contacted today, Dr. Misbah Key in [place], [place], states cancer has been "stable" for past 2-3 months. On "maintenance dosing" of Gemcitabine + Abraxane. Continue home med-Reglan for N/V, Methadone 2.5mg and Phenergan 25mg/ day for pain. Continue home Creon dosing as well. Qualifiers: Pancreatic malignancy location: unspecified Qualified Code(s): C25.9 - Malignant neoplasm of pancreas, unspecified
[2024-08-29 05:38] LABS: HCT - HEMATOCRIT 27.2 % (42.0-52.0); HGB - HEMOGLOBIN 8.8 g/dL (14.0-18.0); MEAN CORPUSCULAR HEMOGLOBIN 29.1 pg (27.0-31.0); MEAN CORPUSCULAR HGB CONC 32.4 g/dL (32.0-36.0); MEAN CORPUSCULAR VOLUME 90.1 fL (80.0-94.0); MEAN PLATELET VOLUME 9.9 fL (7.4-11.4); RED BLOOD COUNT 3.02 10^6/uL (4.70-6.10); RED CELL DISTRIBUTION WIDTH 15.7 % (12.0-15.0); WHITE BLOOD COUNT 6.6 x10^3/uL (4.8-10.8)
[2024-08-29 06:05] LABS: CALCIUM 8.3 mg/dL (8.5-10.3); CREATININE 0.8 mg/dL (0.6-1.3); POTASSIUM 4.3 mmol/L (3.5-4.5)
[2024-08-29] MEDS: predniSONE 20 MG TABLET PO SCH (07:55)
[2024-08-29 08:18] VITALS: BP 114/69; TEMP 98.1; O2SAT 93
--- NOTE | 2024-08-29 10:07 | Discharge Summary ---
Discharge Summary Admit Date: 08/22/24 Discharge Date: 08/29/24 Discharging Provider: Dr. Demetrio Rosales Primary Care Provider: Dr. Tonia Hancock Code Status: Attempt Resuscitation Discharge Facility Name: Home with Home Health DIAGNOSES Admission Diagnoses: Acute respiratory failure with hypoxia Pneumonia Pancreatic cancer Anemia due to chemotherapy Hypokalemia Discharge Diagnoses with Status of Each Condition: Acute respiratory failure with hypoxiapatient still requiring 3 to 5 L on discharge. We are working on setting him up with home oxygen. Will wean as tolerated. He has completed 7 days of IV antibiotics. I want him to do 3 more days of oral antibiotics at home to complete an extended course of 10 days due to this extensive multifocal pneumonia. Also going to do a slow steroid taper for concerns of pneumonitis on top of all of this. Pneumoniamanagement as above. Anemiapatient has received 2 units packed red blood cells. His hemoglobin is now stable. His pancytopenia is likely due to side effects of his chemotherapy. He has a follow-up already scheduled with his oncologist in the next 2 weeks. Advised to follow closely for this. Hypokalemiarepleted, patient's appetite continues to improve daily. Pancreatic cancerpatient's oncologist, Dr. Misbah Key in [facility] has been Updated about his condition. He has a follow-up scheduled for him in the next few weeks. Continue his Reglan, methadone, Phenergan, Creon in the outpatient setting. HPI History of Present Illness: Per Dr. Mccoy: He is a 59-year-old white male who has a history of pancreatic cancer, unknown stage. He presented to our emergency room to get 2 units of transfused packed cells. He states that he is seen by the [facility] and gets his chemotherapy from them for pancreatic cancer. He went for his chemo treatment today but his blood count was too low so they gave him an iron infusion and then instructed him to go to the emergency room to get 2 units. They were told that his hemoglobin was 7.1. With this his hemoglobin is 6.8. He has been on smaller doses and more prolonged doses of chemotherapy with the form of gentamicin and Abraxane since April. That is to treat his pancreatic cancer. Prior to that he was getting full dose 5-FU but he could not tolerate it. His states that he is responding and that his tumor is in "remission". He has been very tired. Very fatigued but he attributes that to the chemo. Yesterday he developed fevers and chills but no cough, no shortness of breath, no change in bowel habits, no dysuria, urgency, frequency. Denies eustachian tube dysfunction. Denies sore throat. He still got up this morning to go to get chemo but they opted not to do it because of the low hemoglobin. He did get an iron infusion 3 weeks ago. No change in stool. No dark or tarry stool. He is being evaluated by the ER provider, he was noted to have a temp of 38.3. Blood pressure of 127/77. Pulse 107. Respirations 14. He was hypoxic on room air and required 2 L to bring him up to 94% by nasal cannula. His chest x-ray has bilateral patchy airspace opacities. Pulmonary edema is also consideration. His sodium was hyponatremic at 129. Potassium 3.4. BUN 13, creatinine 0.9. Glucose 158, lactic acid 0.6, calcium 7.6. AST 43. Total protein 5.6. White cell count was low at 3.5. Hemoglobin 6.8. Platelets 77. After discussion with the ER provider, I will admit the patient inpatient status because I do believe he will be here more than 2 midnights. I will transfuse him, start antibiotics. I will also contact his oncology office tomorrow to see what the regimen is. CONSULTS | PROCEDURES Consultations: Respiratory therapy Procedures: Chest x-ray, chest/thorax CTA, echo HOSPITAL COURSE Hospital Course: Patient is a 59-year-old female with a history of pancreatic cancer on maintenance chemotherapy who presented with worsening dyspnea, fevers, chills. On admission, chest x-ray shows diffuse infiltrates. He was started initially on Rocephin and azithromycin, this was escalated to cefepime. He initially had required 2 L, and this was increased to 15 L, and he is now back down to 2 L at rest. He has completed a 7-day course of IV antibiotics. He will be discharged home on 3 more days of oral antibiotics to complete a prolonged course of 14 days of antibiotics. His oncologist was also spoken with, and there was some concern for interstitial pneumonitis on top of all this, so he was started on high-dose steroids, and will complete a slow taper over the next few days. He has had pancytopenia during this admission, as well as a anemia requiring transfusion. His leukopenia, thrombocytopenia has resolved. His hemoglobin has been stabilized around 7-8. Oxygen desaturation studies were done, and he is still requiring oxygen at rest, as well as with activity. Will be discharging home with home oxygen. He was advised to closely follow-up with his primary care provider, as well as his oncologist. He will also need a repeat CT scan in 3 months to assess for resolution of the pneumonia. Overall, he was deemed stable for discharge home, with very close follow-up with his primary care provider and his oncologist. His is a PA, and the above was all explained to her as well. She demonstrated understanding. As such, he was deemed suitable for discharge home. ALLERGIES Allergies Allergy/AdvReac Type Severity Reaction Status Date / Time No Known Drug Allergies Allergy Verified 08/22/24 18:11 MEDICATIONS Ambulatory Orders Medication Instructions Recorded Confirmed alprazolam 1 mg tablet 1 mg PO BID PRN anxiety 08/23/24 08/23/24 clonidine HCl 0.2 mg tablet 0.2 mg PO BID 08/23/24 08/23/24 fenofibrate 160 mg tablet 160 mg PO DAILY 08/23/24 08/23/24 [id number] 2 - 4 cap PO TIDWM 08/23/24 08/23/24 36,000-114,000-180,000 unit capsule,delay rel (Creon) methadone 5 mg tablet 2.5 mg PO BID 08/23/24 08/23/24 metoclopramide HCl 10 mg tablet 40 mg PO ACHS 08/23/24 08/23/24 (Reglan) mirtazapine 7.5 mg tablet 7.5 mg PO DAILY 08/23/24 08/23/24 magnesium oxide 400 mg (241.3 mg 400 mg PO DAILYWM #30 tabs 08/29/24 magnesium) tablet [id number] 1 tab PO DAILYWM #30 tabs 08/29/24 fumarate 19 mg-folic acid 400 mcg tablet (Therapeutic-M) prednisone 10 mg tablet 10 mg PO DIRECTED #5 tabs 08/29/24 prednisone 20 mg tablet 40 mg (2 x 20 mg) PO DAILYWM #7 08/29/24 tabs PHYSICAL EXAM AT DISCHARGE General Appearance: positive No acute distress and Alert; negative Anxious Eyes Bilateral: positive Normal inspection, PERRL and EOMI ENT: positive ENT inspection nml, Pharynx nml and No signs of dehydration Neck: positive Nml inspection, Thyroid nml and No JVD Respiratory: positive Chest non-tender and No respiratory distress; negative Rales (Mild fine crackles noted, more prominent in the bases; improved since admission) Cardiovascular: positive Regular rate & rhythm, No murmur and No gallop; negative Systolic murmur, Diastolic murmur or Gallop/S3 Peripheral Pulses: positive 2+ Abdomen: positive Non-tender; negative Rebound, Hepatomegaly, Splenomegaly, Abnml bowel sounds or Bruit Back: positive Nml inspection; negative CVA tenderness (R) or CVA tenderness (L) Skin: positive Color nml, No rash, Warm and Dry Extremities: positive Non-tender, Full ROM, Nml appearance and No pedal edema Neurologic/Psychiatric: positive Oriented x3, CN's nml (2-12) and Motor nml LABS 08/29/24 05:20 08/29/24 05:20 DIAGNOSTIC IMAGING Diagnostic Imaging Results: Final report reviewed SEPSIS Sepsis Criteria: Recorded Temperature greater than 38.3C or Less than 36C, Recorded Heart Rate greater than 90 bpm and Respiratory: Increasing oxygen requirements QUALITY (Female Hip Fx Only) Was patient sent home on osteoporosis medication?: No FOLLOW UP Follow Up: Follow-up with your primary care provider in the next 1 to 2 weeks, follow-up with your oncologist. TIME SPENT Time Spent in Discharge (Minutes): 40 Discharge Plan Discharge Patient Disposition: Home, Self Care Condition: Stable Prescriptions: New magnesium oxide 400 mg (241.3 mg magnesium) Tablet 400 mg PO DAILYWM Qty: 30 0RF Therapeutic-M 19 mg iron- 400 mcg Tablet 1 tab PO DAILYWM Qty: 30 0RF prednisone 20 mg Tablet 40 mg PO DAILYWM Qty: 7 0RF Rx Instructions: Please do prednisone 40mg (2 tabs x 20mg) for two more days, then prednisone 20mg (1 tab) for three days, then prednisone 10mg for three days, then prednisone 5mg for three days. prednisone 10 mg tablet 10 mg PO DIRECTED Qty: 5 0RF Rx Instructions: Please do prednisone 40mg (2 tabs x 20mg) for two more days, then prednisone 20mg (1 tab) for three days, then prednisone 10mg for three days, then prednisone 5mg (1/2 tablet of the 10mg tablet) for three days. Continued alprazolam 1 mg tablet 1 mg PO BID PRN (Reason: anxiety) Patient Comments: TAKE 1 TABLET BY MOUTH TWICE DAILY NEEDED FOR ANXIETY clonidine HCl 0.2 mg tablet 0.2 mg PO BID Patient Comments: TAKE 1 TABLET BY MOUTH TWICE DAILY FOR WITHDRAWALS SYMPTOMS methadone 5 mg tablet 2.5 mg PO BID Patient Comments: TAKE 1 TABLET BY MOUTH TWICE DAILY AND REDUCE TOLERATED mirtazapine 7.5 mg tablet 7.5 mg PO DAILY fenofibrate 160 mg tablet 160 mg PO DAILY Patient Comments: TAKE 1 TABLET BY MOUTH DAILY Creon 36,000-114,000- 180,000 unit capsule,delayed release(DR/EC) 2 - 4 cap PO TIDWM Patient Comments: TAKE 2 TO 4 CAPSULES BY MOUTH THREE TIMES DAILY BEFORE MEALS metoclopramide HCl [Reglan] 10 mg tablet 40 mg PO ACHS Patient Comments: Pt states Pt take 4x10mg with meals and at bedtime Activity Restrictions: Activity as Tolerated Diet: Regular Health Concerns: You came in because you are having some shortness of breath, fevers, chills. Your chest x-ray showed diffuse multifocal pneumonia. You were started on IV antibiotics. I did speak with your oncologist, Dr. Key, and kept him updated about your course here. You were also started on steroids, and waiting to complete a slow taper once you are discharged using the following instructions: Please do prednisone 40 mg for 2 more days, then prednisone 20 mg for 3 days, then prednisone 10 mg for 3 days, then prednisone 5 mg for three days. I have sent in a script for both 20mg tablets and 10mg tablets to make this easier. Overall, your respiratory status improved, but you are still requiring oxygen, and we will discharge you home with oxygen. You need very close follow-up with your primary care provider, Dr. Hancock. You also need to follow-up closely with your oncologist, Dr. Key. You also need a repeat CT scan in about 3 months to assess for resolution of your pneumonia. If you are having any more shortness of breath, fevers, chills, difficulty breathing, please feel free to return to the emergency room. We are glad you are feeling better, thank you for letting us take care of you. Print Language: Yakut Patient Instructions: Pneumonia Dc Stand Alone Forms: PCP List Follow-up Care: TONIA HANCOCK MD [Primary Care Provider] -
== END 2024-08-29 14:55 | disposition home or self-care (01) | DRG 193 ==
LOC: ED 18:01 → MS2 20:02
PROVIDERS: ADMIT Specialist; ATTEND Specialist